=== PATIENT | male | born 1950 | race Caucasian/White ===

== ENCOUNTER 2018-10-25 07:41 | Emergency (ER) | payer MEDICARE, MEDICAID, SELFPAY ==
[2018-10-25 07:45] VITALS: PULSE 87; RESP 18; O2SAT 99
[2018-10-25] MEDS: ALBUTEROL/IPRATROPIUM 3 ML AMPUL INH (07:45)
--- NOTE | 2018-10-25 07:47 | DI.RAD.S_ITS ---
PROCEDURE: XR CHEST 2V INDICATIONS: cough, fever, aches TECHNIQUE: 2 views of the chest were acquired. COMPARISON: [facility], , CHEST 2 VIEW, 11/09/2016, 12:45. FINDINGS: Surgical changes and devices: None. Lungs and pleura: Left apical scarring is present, as before. Lungs are otherwise clear. No pleural effusions or pneumothorax. Mediastinum: Mediastinal contours are normal. Heart size is normal. Bones and chest wall: No suspicious bony abnormalities. Soft tissues appear unremarkable. IMPRESSION: No acute process. Dictated by: Sushil Martinez M.D. on 10/25/2018 at 8:18 Approved by: Sushil Martinez M.D. on 10/25/2018 at 8:18
[2018-10-25 07:49] VITALS: BP 181/89; PULSE 95; RESP 18; TEMP 36.6; O2SAT 100; BMI 21.1
--- NOTE | 2018-10-25 07:50 | ED.URI ---
HPI - URI/Sore Throat General Chief Complaint: Upper Respiratory Symptoms Stated Complaint: difficulty breathing,sick for few days Time Seen by Provider: 10/25/18 07:43 Source: patient Mode of arrival: ambulatory Limitations: no limitations History of Present Illness HPI Narrative: 67-year-old male smoker with history of COPD and lung cancer presents with about 1 week of increased cough, shortness of breath subjective fever and body aches. He did not get a flu shot this year. He is not dizzy nor weak or lightheaded. He denies nausea, vomiting or diarrhea. He was last treated for lung cancer in 2017. He has not been hospitalized any time recently. He denies any recent travel or history of blood clot MD Complaint: fever and cough Onset (ago): day(s) Duration: constant Severity: moderate Relieving factors: nothing Exacerbating factors: exertion Description of mucous: clear Able to tolerate fluids by mouth: Yes Associated symptoms: fever, chills and myalgias Treatments prior to arrival: none Related Data Previous Rx's Medication Instructions Recorded vzdhmruphv-tuotrdtlbocal-ecly 0 tab PO Q4HP PRN #10 tab 01/25/16 amoxicillin 500 mg PO Q8H #26 cap 11/02/16 dextromethorphan-guaifenesin 1 tab PO Q12HP PRN #20 tab 11/09/16 [Mucinex DM] albuterol sulfate 1 puff INHALATION Q4-6H PRN #8.5 10/25/18 gram Allergies Allergy/AdvReac Type Severity Reaction Status Date / Time No Known Drug Allergies Allergy Verified 10/25/18 07:49 Review of Systems Constitutional Reports chills, Reports fever(s), Denies lethargy and Denies weakness Eyes Denies change in vision, Denies eye discharge, Denies irritation and Denies loss of vision ENT Ears, Nose, Mouth, and Throat: Denies change in voice, Denies neck pain and Denies sore throat Cardiovascular Denies chest pain, Denies irregular heart rhythm, Denies lightheadedness, Denies palpitations, Reports dyspnea, Denies dyspnea on exertion and Denies orthopnea Respiratory Reports cough, Reports dyspnea, Denies dyspnea on exertion and Reports wheezing Gastrointestinal Gastrointestinal: Denies abdominal pain, Denies change in bowel habits, Denies diarrhea, Denies nausea and Denies vomiting Genitourinary Denies hematuria, Denies flank pain, Denies urinary incontinence and Denies urinary urgency Musculoskeletal Denies neck pain Integumentary/Breasts Denies pruritus, Denies erythema, Denies rash and Denies wounds Neurologic Denies confusion, Denies loss of vision and Denies weakness Psychiatric Denies anxiety, Denies confusion, Denies depression, Denies homicidal ideation and Denies suicidal ideation Endocrine Denies palpitations Hematologic/Lymphatic Denies easy bruising Allergic/Immunologic Reports wheezing Exam Narrative Exam Narrative: GENERAL: 67-year-old male appears younger than stated age, no obvious or significant current distress HEAD: Atraumatic. Normocephalic. No temporal or scalp tenderness. EYES: Pupils equal round and reactive. Extraocular motions intact. No scleral icterus. No injection or drainage. ENT: Nose without bleeding, purulent drainage or septal hematoma. Throat without erythema, tonsillar hypertrophy or exudate. Uvula midline. Airway patent. NECK: Trachea midline. No JVD or lymphadenopathy. Supple, nontender, no meningeal signs. CARDIOVASCULAR: Regular rate and rhythm without murmurs, gallops, or rubs. RESPIRATORY: Prolonged expiratory phase with decreased sounds bilaterally GASTROINTESTINAL: Abdomen soft, non-tender, nondistended. No hepato-splenomegaly, or palpable masses. No guarding. EXTREMITIES: No clubbing, cyanosis, or edema. No joint tenderness, effusion, or edema noted. BACK: Nontender without deformity or crepitance. No flank tenderness. NEURO: AOx3. SKIN: No rash or erythema. Initial Vital Signs Initial Vital Signs: Vital Signs Pulse Rate 87 10/25/18 07:45 Respiratory Rate 18 10/25/18 07:45 Pulse Oximetry 99 10/25/18 07:45 Course Orders Ordered: ED Orders 10/25/18 07:47 XR chest 2V Stat 10/25/18 07:48 Influenza A and B by PCR Rapid Stat Discontinued Medications Albuterol (Ventolin Hfa Prepack) 1 box MISC SEEINSTR ONE Stop: 10/25/18 07:58 Last Admin: 10/25/18 08:29 Dose: Not Given Albuterol/Ipratropium (Duoneb) 3 ml INH NOW ONE Stop: 10/25/18 07:48 Last Admin: 10/25/18 07:45 Dose: 3 ml Reevaluation(s) Reevaluation #1: Patient reports tremendous improvement after albuterol inhaler Time: 08:02 Vital Signs - 8 hr 10/25/18 07:45 10/25/18 07:49 10/25/18 08:43 Temperature 98 F Pulse Rate 87 95 H 88 Respiratory Rate 18 18 17 Blood Pressure 181/89 H 148/88 H Pulse Oximetry 99 100 97 MDM - URI/Sore Throat Lab Data Lab Results 10/25/18 Range/Units 07:48 Influenza A & B (PCR) Positive, type a H (Negative) Imaging Data Chest x-ray: Radiologist's impression: Kike Rebolledo 67 M [address] [address] XRay Report Signed Patient: Kike Rebolledo WMR#: [id number] : [id number]:[id number] Age/Sex: 67 / MDate of Service: 10/25/18 Loc: ED Accession Number: [id number] Procedure: XR chest 2V Ordering Provider: Benja Cruz D.O. PROCEDURE: XR CHEST 2V INDICATIONS: cough, fever, aches TECHNIQUE: 2 views of the chest were acquired. COMPARISON: [facility], , CHEST 2 VIEW, 11/09/2016, 12:45. FINDINGS: Surgical changes and devices: None. Lungs and pleura: Left apical scarring is present, as before. Lungs are otherwise clear. No pleural effusions or pneumothorax. Mediastinum: Mediastinal contours are normal. Heart size is normal. Bones and chest wall: No suspicious bony abnormalities. Soft tissues appear unremarkable. IMPRESSION: No acute process. Dictated by: Sushil Martinez M.D. on 10/25/2018 at 8:18 Approved by: Sushil Martinez M.D. on 10/25/2018 at 8:18 [facility] Narrative Medical decision making narrative: Multiple etiologies for patient's symptoms considered including: [flu vs. COPD vs. pneumonia vs. PE vs other] Patient's symptoms improved or duration of stay with above-stated therapies. Findings and discharge diagnosis discussed with patient/family followed by verbalization of understanding Return precautions discussed with patient/family whom verbalize understanding. Discharge Plan Departure Patient Disposition: Home Clinical Impression: Influenza A Interventions: ED Discharge Assessment Last Done: 10/25/18 08:43 Instructions: DI for Atypical Pneumonia Activity Restrictions/Additional Instructions: *You have been diagnosed with [influenza] *What to do: *Take medications as directed, which include an inhaler like we used in the Emergency Department *Follow up with your primary care provider in 2-3 days, call for an appointment. Let them know you were seen in the Emergency Department and that we ask that you be seen in follow up *Return to ER if you should have any new, worsening or concerning symptoms Prescriptions: New albuterol sulfate 90 mcg/actuation HFA aerosol inhaler 1 puff INHALATION Q4-6H PRN (Reason: bronchospasm) Qty: 8.5 RF: 0 No Action yddnulqulp-gsbjjfmfjryna-cqst 1 EACH tablet PO Q4HP PRNQty: 10 RF: 0 amoxicillin 500 MG capsule 500 mg PO Q8H Qty: 26 RF: 0 dextromethorphan-guaifenesin [Mucinex DM] 1,200 MG/60 MG tablet extended release 12 hr 1 tab PO Q12HP PRNQty: 20 RF: 0 Referrals: [facility] [Outside]
--- NOTE | 2018-10-25 07:55 | ED_ITS ---
HPI - URI/Sore Throat General Chief Complaint: Upper Respiratory Symptoms Stated Complaint: difficulty breathing,sick for few days Time Seen by Provider: 10/25/18 07:43 Source: patient Mode of arrival: ambulatory Limitations: no limitations History of Present Illness HPI Narrative: 67-year-old male smoker with history of COPD and lung cancer presents with about 1 week of increased cough, shortness of breath subjective fever and body aches. He did not get a flu shot this year. He is not dizzy nor weak or lightheaded. He denies nausea, vomiting or diarrhea. He was last treated for lung cancer in 2017. He has not been hospitalized any time recently. He denies any recent travel or history of blood clot MD Complaint: fever and cough Onset (ago): day(s) Duration: constant Severity: moderate Relieving factors: nothing Exacerbating factors: exertion Description of mucous: clear Able to tolerate fluids by mouth: Yes Associated symptoms: fever, chills and myalgias Treatments prior to arrival: none Related Data Previous Rx's Medication Instructions Recorded kahettbnsg-vsvjbmunsppeh-wviz 0 tab PO Q4HP PRN #10 tab 01/25/16 amoxicillin 500 mg PO Q8H #26 cap 11/02/16 dextromethorphan-guaifenesin 1 tab PO Q12HP PRN #20 tab 11/09/16 [Mucinex DM] albuterol sulfate 1 puff INHALATION Q4-6H PRN #8.5 10/25/18 gram Allergies Allergy/AdvReac Type Severity Reaction Status Date / Time No Known Drug Allergies Allergy Verified 10/25/18 07:49 Review of Systems Constitutional Reports chills, Reports fever(s), Denies lethargy and Denies weakness Eyes Denies change in vision, Denies eye discharge, Denies irritation and Denies loss of vision ENT Ears, Nose, Mouth, and Throat: Denies change in voice, Denies neck pain and Denies sore throat Cardiovascular Denies chest pain, Denies irregular heart rhythm, Denies lightheadedness, Denies palpitations, Reports dyspnea, Denies dyspnea on exertion and Denies orthopnea Respiratory Reports cough, Reports dyspnea, Denies dyspnea on exertion and Reports wheezing Gastrointestinal Gastrointestinal: Denies abdominal pain, Denies change in bowel habits, Denies diarrhea, Denies nausea and Denies vomiting Genitourinary Denies hematuria, Denies flank pain, Denies urinary incontinence and Denies urinary urgency Musculoskeletal Denies neck pain Integumentary/Breasts Denies pruritus, Denies erythema, Denies rash and Denies wounds Neurologic Denies confusion, Denies loss of vision and Denies weakness Psychiatric Denies anxiety, Denies confusion, Denies depression, Denies homicidal ideation and Denies suicidal ideation Endocrine Denies palpitations Hematologic/Lymphatic Denies easy bruising Allergic/Immunologic Reports wheezing Exam Narrative Exam Narrative: GENERAL: 67-year-old male appears younger than stated age, no obvious or significant current distress HEAD: Atraumatic. Normocephalic. No temporal or scalp tenderness. EYES: Pupils equal round and reactive. Extraocular motions intact. No scleral icterus. No injection or drainage. ENT: Nose without bleeding, purulent drainage or septal hematoma. Throat without erythema, tonsillar hypertrophy or exudate. Uvula midline. Airway patent. NECK: Trachea midline. No JVD or lymphadenopathy. Supple, nontender, no meningeal signs. CARDIOVASCULAR: Regular rate and rhythm without murmurs, gallops, or rubs. RESPIRATORY: Prolonged expiratory phase with decreased sounds bilaterally GASTROINTESTINAL: Abdomen soft, non-tender, nondistended. No hepato- splenomegaly, or palpable masses. No guarding. EXTREMITIES: No clubbing, cyanosis, or edema. No joint tenderness, effusion, or edema noted. BACK: Nontender without deformity or crepitance. No flank tenderness. NEURO: AOx3. SKIN: No rash or erythema. Initial Vital Signs Initial Vital Signs: Vital Signs Pulse Rate 87 10/25/18 07:45 Respiratory Rate 18 10/25/18 07:45 Pulse Oximetry 99 10/25/18 07:45 Course Orders Ordered: ED Orders 10/25/18 07:47 XR chest 2V Stat 10/25/18 07:48 Influenza A and B by PCR Rapid Stat Discontinued Medications Albuterol (Ventolin Hfa Prepack) 1 box MISC SEEINSTR ONE Stop: 10/25/18 07:58 Last Admin: 10/25/18 08:29 Dose: Not Given Albuterol/Ipratropium (Duoneb) 3 ml INH NOW ONE Stop: 10/25/18 07:48 Last Admin: 10/25/18 07:45 Dose: 3 ml Reevaluation(s) Reevaluation #1: Patient reports tremendous improvement after albuterol inhaler Time: 08:02 Vital Signs - 8 hr 10/25/18 07:45 10/25/18 07:49 10/25/18 08:43 Temperature 98 F Pulse Rate 87 95 H 88 Respiratory Rate 18 18 17 Blood Pressure 181/89 H 148/88 H Pulse Oximetry 99 100 97 MDM - URI/Sore Throat Lab Data Lab Results 10/25/18 Range/Units 07:48 Influenza A & B (PCR) Positive, type a H (Negative) Imaging Data Chest x-ray: Radiologist's impression: Kike Rebolledo 67 M [address] [address] XRay Report Signed Patient: Kike Rebolledo WMR#: [id number] : [id number]:[id number] Age/Sex: 67 / MDate of Service: 10/25/18 Loc: ED Accession Number: [id number] Procedure: XR chest 2V Ordering Provider: Benja Cruz D.O. PROCEDURE: XR CHEST 2V INDICATIONS: cough, fever, aches TECHNIQUE: 2 views of the chest were acquired. COMPARISON: [facility], , CHEST 2 VIEW, 11/09/2016, 12:45. FINDINGS: Surgical changes and devices: None. Lungs and pleura: Left apical scarring is present, as before. Lungs are otherwise clear. No pleural effusions or pneumothorax. Mediastinum: Mediastinal contours are normal. Heart size is normal. Bones and chest wall: No suspicious bony abnormalities. Soft tissues appear unremarkable. IMPRESSION: No acute process. Dictated by: Sushil Martinez M.D. on 10/25/2018 at 8:18 Approved by: Sushil Martinez M.D. on 10/25/2018 at 8:18 [facility] Narrative Medical decision making narrative: Multiple etiologies for patient's symptoms considered including: [flu vs. COPD vs. pneumonia vs. PE vs other] Patient's symptoms improved or duration of stay with above-stated therapies. Findings and discharge diagnosis discussed with patient/family followed by verbalization of understanding Return precautions discussed with patient/family whom verbalize understanding. Discharge Plan Departure Patient Disposition: Home Clinical Impression: Influenza A Interventions: ED Discharge Assessment Last Done: 10/25/18 08:43 Instructions: DI for Atypical Pneumonia Activity Restrictions/Additional Instructions: *You have been diagnosed with [influenza] *What to do: *Take medications as directed, which include an inhaler like we used in the Emergency Department *Follow up with your primary care provider in 2-3 days, call for an appointment. Let them know you were seen in the Emergency Department and that we ask that you be seen in follow up *Return to ER if you should have any new, worsening or concerning symptoms Prescriptions: New albuterol sulfate 90 mcg/actuation HFA aerosol inhaler 1 puff INHALATION Q4-6H PRN (Reason: bronchospasm) Qty: 8.5 RF: 0 No Action ofzxgcdxcd-ykqpoxbblhsrq-msry 1 EACH tablet PO Q4HP PRNQty: 10 RF: 0 amoxicillin 500 MG capsule 500 mg PO Q8H Qty: 26 RF: 0 dextromethorphan-guaifenesin [Mucinex DM] 1,200 MG/60 MG tablet extended release 12 hr 1 tab PO Q12HP PRNQty: 20 RF: 0 Referrals: [facility] [Outside]
[2018-10-25 08:43] VITALS: BP 148/88; PULSE 88; RESP 17; O2SAT 97
== END 2018-10-25 08:46 | disposition home or self-care (01) ==
LOC: ED 08:44
PROVIDERS: Emergency Provider Emergency Medicine
DX: J10.1 Influenza due to other identified influenza virus with other respiratory manifestations (principal)
CPT/HCPCS: 71046; 87400; 94640; 99282; 99283

== ENCOUNTER 2018-10-27 22:53 | Emergency (ER) | payer MEDICARE, MEDICAID, SELFPAY ==
[2018-10-27 23:00] VITALS: BP 153/93; PULSE 126; RESP 16; TEMP 38.6; O2SAT 95; BMI 21.7
--- NOTE | 2018-10-28 00:38 | ED.SOB ---
HPI - SOB/Dyspnea General Chief Complaint: Shortness of Breath/Dyspnea Stated Complaint: States has influenza A, told to return after 3 day Time Seen by Provider: 10/28/18 00:31 Source: patient Mode of arrival: ambulatory Limitations: no limitations History of Present Illness Patient is a 67-year-old male. History of COPD and lung cancer. Last lung cancer treatment was in 2017. Is not on oxygen at home for his COPD. Was seen here in the emergency department a couple days ago. Was diagnosed with the flu. Was not started on Tamiflu. Since then has had a cough, headache, body aches, shortness of breath. He was given a prescription for albuterol however was unable to fill it because the pharmacy would not fill this medicine secondary to the 8.5 g that were ordered. This apparently was not carried by the pharmacy. Related Data Previous Rx's Medication Instructions Recorded nmcxxzqeyy-rizxajevvuaks-jqkt 0 tab PO Q4HP PRN #10 tab 01/25/16 amoxicillin 500 mg PO Q8H #26 cap 11/02/16 dextromethorphan-guaifenesin 1 tab PO Q12HP PRN #20 tab 11/09/16 [Mucinex DM] albuterol sulfate 1 puff INHALATION Q4-6H PRN #8.5 10/25/18 gram albuterol sulfate 2 puff INHALATION Q4-6H PRN #18 10/28/18 gram Allergies Allergy/AdvReac Type Severity Reaction Status Date / Time No Known Drug Allergies Allergy Verified 10/25/18 07:49 Review of Systems Constitutional Reports body ache(s), Reports chills, Reports fatigue and Reports fever(s) Cardiovascular Denies chest pain and Denies dyspnea Respiratory Denies dyspnea Gastrointestinal Gastrointestinal: Denies abdominal pain, Denies diarrhea, Denies nausea and Denies vomiting Musculoskeletal Reports myalgias and Denies arthralgias Integumentary/Breasts Denies rash Neurologic Denies behavioral changes Psychiatric Denies behavioral changes Endocrine Reports fatigue Hematologic/Lymphatic Denies easy bleeding and Denies easy bruising [facility] Medical History COPD (chronic obstructive pulmonary disease) (Acute) Lung cancer (Acute) Social History Smoking Status: Former smoker Social History Smoking Status: Former smoker Exam Initial Vital Signs Initial Vital Signs: Vital Signs Temperature 101.4 F H 10/27/18 23:00 Pulse Rate 126 H 10/27/18 23:00 Respiratory Rate 16 10/27/18 23:00 Blood Pressure 153/93 H 10/27/18 23:00 Pulse Oximetry 95 10/27/18 23:00 Const General: well groomed and No acute distress Orientation: alert, awake and oriented x3 HENMT Head: normal to inspection and normocephalic Resp Effort & Inspection: normal respiratory effort, no audible wheezes, no cough, no grunting, not labored and not tachypneic Auscultation: rhonchi Cardio Rate: tachycardic Rhythm: regular rhythm Skin Lesions: no lesions Rashes: no rashes Neuro General: alert, awake and oriented x3 Cognition: normal cognition Speech: speech normal Gait: normal gait Motor: muscle tone normal throughout Extrem General: normal to inspection and capillary refill normal Psych Appearance: grossly normal and well kempt Course Orders Ordered: ED Orders 10/28/18 00:38 RT Consult Eval and Treat Now 10/28/18 02:21 XR chest 1V Stat Discontinued Medications Albuterol (Ventolin) 2.5 mg INH NOW ONE Stop: 10/28/18 00:39 Last Admin: 10/28/18 01:00 Dose: 2.5 mg Sodium Chloride (Normal Saline 0.9%) 1,000 mls @ 1,000 mls/hr IV BOLUS ONE Stop: 10/28/18 01:37 Last Infusion: 10/28/18 02:15 Dose: 0 mls/hr Admin: 10/28/18 01:00 Dose: 1,000 mls/hr Vital Signs - 8 hr 10/27/18 23:00 10/28/18 01:07 10/28/18 02:16 Temperature 101.4 F H 99.0 F Pulse Rate 126 H 77 114 H Respiratory Rate 16 18 18 Blood Pressure 153/93 H Blood Pressure [Left Arm] 148/84 H Pulse Oximetry 95 96 90 L MDM - SOB/Dyspnea Imaging Data Chest x-ray: Attestation: I personally reviewed and interpreted this imaging study as follows: My impression: No pneumonia, no pneumothorax, no acute abnormalities MDM Narrative Medical decision making narrative: Patient arrived was febrile and tachycardic. Patient hypoxic to the low 90s. He was given a nebulizer here in the emergency department and is medications for his fever and also fluids. Afterwards patient states that he felt much better. He ambulated to the bathroom. His heart rate did not improve that much with reduction of his fever and his oxygen saturations were also in the low 90s however there is no signs of pneumonia. He is out of the window for treatment with Tamiflu. Does have a history of COPD which would explain his low oxygen saturations. He was not short of breath with walking around the emergency department. Patient has a phone number to call to establish primary care provider here in the area. Will hold on further workup for now. Patient was given return precautions. He expressed understanding and agreement with plan. Discharge Plan Departure Patient Disposition: Home Clinical Impression: Influenza A Instructions: Chronic Obstructive Pulmonary Disease Activity Restrictions/Additional Instructions: I do recommend that you contact [phone] to establish a primary care provider in the area. Fill the albuterol. I also recommend that you start taking Tums and or a Zantac like we discussed. Return to the emergency department for any new or worsening symptoms Prescriptions: New albuterol sulfate 90 mcg/actuation HFA aerosol inhaler 2 puff INHALATION Q4-6H PRN (Reason: shortness of breath) Qty: 18 RF: 0 No Action dhewzbqsse-yeygzpvrfrmgf-osli 1 EACH tablet PO Q4HP PRNQty: 10 RF: 0 amoxicillin 500 MG capsule 500 mg PO Q8H Qty: 26 RF: 0 dextromethorphan-guaifenesin [Mucinex DM] 1,200 MG/60 MG tablet extended release 12 hr 1 tab PO Q12HP PRNQty: 20 RF: 0 albuterol sulfate 90 mcg/actuation HFA aerosol inhaler 1 puff INHALATION Q4-6H PRN (Reason: bronchospasm) Qty: 8.5 RF: 0
[2018-10-28] MEDS: ALBUTEROL 2.5 MG/3 ML NEB (ADULT) INH (01:00)
[2018-10-28] MEDS: SODIUM CHLORIDE 0.9% 1,000 ML 1000 ML IV (01:00)
[2018-10-28 01:07] VITALS: PULSE 77; RESP 18; O2SAT 96
[2018-10-28 02:16] VITALS: BP 148/84; PULSE 114; RESP 18; TEMP 37.2; O2SAT 90
--- NOTE | 2018-10-28 02:21 | DI.RAD.S_ITS ---
PROCEDURE: XR CHEST 1V INDICATIONS: Shortness of breath, flu, hypoxia TECHNIQUE: One view of the chest was acquired. COMPARISON: [facility], CT, PE STUDY (CTA CHEST), 04/21/2009, 13:13. [facility], CR, CHEST 2 VIEW, 09/18/2014, 17:12. [facility], CR, CHEST 2 VIEW, 11/09/2016, 12:45. [facility], , CHEST 2 VIEW, 11/02/2016, 20:41. [facility], , XR CHEST 2V, 10/25/2018, 7:58. FINDINGS: Surgical changes and devices: None. Lungs and pleura: Lungs are clear. No pleural effusions or pneumothorax. Mediastinum: The cardiac contours are within normal limits. The aorta demonstrates calcification and tortuosity. Bones and chest wall: Age-appropriate bony degenerative changes are seen. No suspicious bony lesions. A nipple shadow can be seen involving the right lower lung, which can be seen on several prior examinations. IMPRESSION: Portable chest within normal limits. Note: No significant discrepancy from the preliminary report. Dictated by: Kashmir Bowen M.D. on 10/28/2018 at 7:28 Approved by: Kashmir Bowen M.D. on 10/28/2018 at 7:31
[2018-10-28 03:16] VITALS: BP 156/90; PULSE 110; RESP 16; O2SAT 92
== END 2018-10-28 03:18 | disposition home or self-care (01) ==
PROVIDERS: Emergency Provider Emergency Medicine
DX: J10.1 Influenza due to other identified influenza virus with other respiratory manifestations (principal); R00.0 Tachycardia, unspecified; R53.83 Other fatigue
CPT/HCPCS: 71045; 94640; 96360; 99283; J7613

== ENCOUNTER 2022-01-04 15:34 | Emergency (ER) | payer MEDICARE, MEDICAID, SELFPAY ==
[2022-01-04] VITALS (30 sets, daily range): BP systolic 121–172; BP diastolic 69–106; PULSE 59–89; RESP 15–26; TEMP 37.1; O2SAT 95–99
--- NOTE | 2022-01-04 15:44 | DI.RAD.S_ITS ---
PROCEDURE: XR CHEST 1V INDICATIONS: chest pain TECHNIQUE: One view of the chest was acquired. COMPARISON: [facility], CR, XR CHEST 1V, 10/28/2018, 2:30. [facility], CR, XR CHEST 2V, 10/25/2018, 7:58. FINDINGS: Surgical changes and devices: None. Lungs and pleura: No consolidation. Calcification in the right lung which likely corresponds to the calcified pleural plaques seen on remote CT. No pleural effusions or pneumothorax. Mediastinum: Mediastinal contours appear normal. Heart size is normal. Bones and chest wall: No suspicious bony lesions. Overlying soft tissues appear unremarkable. IMPRESSION: No acute cardiopulmonary abnormality. Calcified pleural plaques. Dictated by: Nicholas Silva M.D. on 01/04/2022 at 16:44 Approved by: Nicholas Silva M.D. on 01/04/2022 at 16:45
[2022-01-04 16:10] LABS: Add Manual Diff / Slide Review NO; Basophils Absolute Auto 100 /uL (0-100); Basophils Percent Auto 0.5 % (0-2); Eosinophils Absolute Auto 500 /uL (0-450); Eosinophils Percent Auto 4.4 % (2-4); Hematocrit 50.7 % (41-53); Hemoglobin 17.3 g/dL (13.5-17.5); Lymphocytes Absolute Auto 1200 /uL (1100-4500); Mean Corpuscular HGB Conc 34.1 % (30-36); Mean Corpuscular Hemoglobin 30.5 PG (26-34); Mean Corpuscular Volume 89.4 fL (80-100); Monocytes Absolute Auto 700 /uL (0-900); Monocytes Percent Auto 6.8 % (3-14); Neutrophils Absolute Auto 8100 /uL (1500-7000); Neutrophils Percent Auto 77.3 % (50-75); Platelet Count 165 X10^3/uL (150-400); Red Blood Cell Count 5.66 X10^6/uL (4.5-5.9); Red Cell Distribution Width 14.7 % (11.6-14.8); White Blood Cell Count 10.5 X10^3/uL (4.5-11.0)
[2022-01-04 16:21] LABS: Alanine Aminotransferase 18 IU/L (<50); Albumin 4.6 g/dL (3.5-5.0); Albumin Globulin Ratio 1.4 (1.0-2.8); Alkaline Phosphatase 123 U/L (38-126); Aspartate Aminotransferase 54 IU/L (17-59); BUN Creatinine Ratio 12.3 (6-22); Bilirubin Total 0.6 mg/dL (0.2-1.3); Blood Urea Nitrogen 17 mg/dL (9-20); Calcium 9.3 mg/dL (8.4-10.2); Carbon Dioxide 33 mmol/L (22-32); Chloride 101 mmol/L (98-107); Creatine Kinase 189 U/L (55-170); Estimated Glomerular Filt Rate 54 mL/min (>60); Globulin 3.3 g/dL (1.7-4.1); Glucose 114 mg/dL (80-110); Lipase 46 U/L (23-300); Magnesium 2.3 mg/dL (1.6-2.3); Potassium 3.9 mmol/L (3.4-5.1); Sodium 143 mmol/L (137-145); Total Protein 7.9 g/dL (6.3-8.2)
--- NOTE | 2022-01-04 16:24 | PC.NURSE ---
Addendum entered by Yoana Kenny R.N. 01/04/22 18:33: 1830: Pt reports no chest pain. Original Note: Pt reports intermittent, substernal, chest heaviness that radiates up to both sides of jaw, nausea and headache for the past 2 days that began while chopping wood. Pt reports 3/10 chest pain currently. Denies SOB. Reports no recent illness. Reports taking 3 larger doses of aspirin at noon and earlier this morning. Call light within reach. Encouraged to call if any new or worsening symptoms.
[2022-01-04 16:37] LABS: HEMOLYSIS < 15 (0-50)
[2022-01-04 16:43] LABS: CKMB % Relative Index 7.1 % (1.5-5.0)
--- NOTE | 2022-01-04 16:52 | ED.CHESTPAIN ---
HPI - Chest Pain <Paul Metzger MD - Last Filed: 01/07/22 12:26> General Chief Complaint: Chest Pain Stated Complaint: chest pain x 2 days Time Seen by Provider: 01/04/22 16:52 Source: patient Mode of arrival: Ambulatory History of Present Illness HPI narrative: This 71-year-old man with a remote history of lung cancer x2 comes to the ED today with 2 days history of chest pain. He said that he 1st noticed it in his jaw and neck while cutting wood. He said the pain was pretty severe and caused a pretty bad headache as well. He said it made him feel nauseated, short of breath and diaphoretic. He notes that the pain is quite a bit better when he would rest and not work so hard. The pain is persisted intermittently since then. Currently the pain is in the left and right precordium not radiating anywhere. He thought he better come to have this evaluated. To his knowledge he has never had cardiac disease. He has never been treated for hypertension or diabetes. He is a long-term smoker. No injury cough or fever. Related Data Allergies Allergy/AdvReac Type Severity Reaction Status Date / Time No Known Drug Allergies Allergy Verified 10/25/18 07:49 Review of Systems <Paul Metzger MD - Last Filed: 01/07/22 12:26> Review of Systems Narrative: Complete review of systems is negative other than as noted above. Patient History <Paul Metzger MD - Last Filed: 01/07/22 12:26> Medical History (Updated 01/04/22 @ 17:02 by Paul Metzger MD) COPD (chronic obstructive pulmonary disease) Lung cancer Social History Smoking Status: Former smoker Smoking Status: Former smoker alcohol intake frequency: 0-2 drinks per day Substance Use Type: does not use Exam <Paul Metzger MD - Last Filed: 01/07/22 12:26> Narrative Exam Narrative: GENERAL: Alert, cooperative and in no distress. HEAD: Atraumatic. Normocephalic. EYES: Sclera are clear without icterus. Extraocular movements are full. ENT: No rhinorrhea. Oropharynx is moist. Mouth exam is benign. NECK: Supple. Full range of motion. CARDIOVASCULAR: Normal rate and rhythm without murmur gallop or rub. RESPIRATORY: Clear to auscultation. Breath sounds equal bilaterally. No wheezes, rales, or rhonchi. GASTROINTESTINAL: Abdomen soft, non-tender, nondistended. EXTREMITIES: No edema, full range of motion. No obvious trauma. BACK: Normal inspection, no CVA tenderness. NEURO: Nonfocal examination, normal speech, normal gait. SKIN: No rash or erythema of visible areas PSYCH: Normally oriented. Normal range of affect. Appropriate behavior Initial Vital Signs Initial Vital Signs: Vital Signs Temperature 98.7 F 01/04/22 15:37 Pulse Rate 89 01/04/22 15:37 Respiratory Rate 20 01/04/22 15:37 Blood Pressure 171/96 H 01/04/22 15:37 Pulse Oximetry 98 01/04/22 15:37 Oxygen Delivery Method 01/04/22 15:37 <Benja Cruz DO - Last Filed: 01/04/22 19:49> Initial Vital Signs Initial Vital Signs: Vital Signs Temperature 98.7 F 01/04/22 15:37 Pulse Rate 89 01/04/22 15:37 Respiratory Rate 20 01/04/22 15:37 Blood Pressure 171/96 H 01/04/22 15:37 Pulse Oximetry 98 01/04/22 15:37 Oxygen Delivery Method 01/04/22 15:37 Course <Paul Metzger MD - Last Filed: 01/07/22 12:26> Orders Ordered: Discontinued Medications Aspirin (Aspirin 81 Mg Chew Tab) 324 mg PO NOW ONE Stop: 01/04/22 16:59 Last Admin: 01/04/22 17:18 Dose: 324 mg Documented By: SB Atorvastatin Calcium (Atorvastatin 20 Mg Tablet) 40 mg PO NOW ONE Stop: 01/04/22 18:19 Last Admin: 01/04/22 18:26 Dose: 40 mg Documented By: BS Heparin Sodium (Porcine) (Heparin 5,000 Unit/Ml Vial) 4,000 unit IV NOW ONE Stop: 01/04/22 17:17 Last Admin: 01/04/22 17:21 Dose: 4,000 unit Documented By: SB Heparin Sodium/Dextrose (Heparin Drip) 25,000 unit in 500 mls @ 17.418 mls/hr IV CONT FELECIA; Protocol Last Admin: 01/04/22 17:26 Dose: 12 units/kg/hr, 17.418 mls/hr Documented By: PEDRO LUIS Metoprolol Tartrate (Metoprolol Tartrate 5 Mg/5 Ml Inj) 5 mg IV NOW ONE Stop: 01/04/22 16:59 Last Admin: 01/04/22 17:45 Dose: Not Given Documented By: PEDRO LUIS Metoprolol Tartrate (Metoprolol Ir 25 Mg Tablet) 25 mg PO NOW ONE Stop: 01/04/22 17:44 Last Admin: 01/04/22 17:49 Dose: 25 mg Documented By: PEDRO LUIS Morphine Sulfate (Morphine 2 Mg/Ml Inj) 2 mg IV NOW ONE Stop: 01/04/22 16:59 Last Admin: 01/04/22 17:41 Dose: 2 mg Documented By: PEDRO LUIS Nitroglycerin (Nitroglycerin 0.4 Mg Sl Tab) 0.4 mg SL [id number] PRN PRN Reason: Chest Pain Last Admin: 01/04/22 18:04 Dose: 0.4 mg Documented By: PEDRO LUIS Admin: 01/04/22 17:37 Dose: 0.4 mg Documented By: PEDRO LUIS Admin: 01/04/22 17:14 Dose: 0.4 mg Documented By: PEDRO LUIS Vital Signs Vital signs: Vital Signs - 8 hr 01/04/22 15:37 01/04/22 15:47 01/04/22 17:14 Temperature 98.7 F Pulse Rate 89 79 78 Respiratory Rate 20 21 Blood Pressure 171/96 H 170/106 H Pulse Oximetry 98 98 Oxygen Delivery Method Room Air 01/04/22 16:00 01/04/22 16:30 01/04/22 17:00 Temperature Pulse Rate 70 79 73 Respiratory Rate 17 15 21 Blood Pressure Pulse Oximetry 98 98 99 Oxygen Delivery Method 01/04/22 17:15 01/04/22 17:15 01/04/22 17:37 Temperature Pulse Rate 75 80 Respiratory Rate 26 H Blood Pressure 164/90 H 147/90 H Pulse Oximetry 99 Oxygen Delivery Method 01/04/22 17:20 01/04/22 17:20 01/04/22 17:25 Temperature Pulse Rate 76 87 Respiratory Rate 18 Blood Pressure 172/99 H Pulse Oximetry 97 96 Oxygen Delivery Method 01/04/22 17:25 01/04/22 17:30 01/04/22 17:30 Temperature Pulse Rate 79 Respiratory Rate 20 Blood Pressure 134/78 151/86 H Pulse Oximetry 96 Oxygen Delivery Method 01/04/22 17:36 01/04/22 17:36 01/04/22 17:37 Temperature Pulse Rate 77 83 Respiratory Rate 21 22 Blood Pressure 143/88 H Pulse Oximetry 96 96 Oxygen Delivery Method 01/04/22 17:37 01/04/22 17:40 01/04/22 17:40 Temperature Pulse Rate 74 Respiratory Rate 18 Blood Pressure 147/90 H 123/77 Pulse Oximetry 96 Oxygen Delivery Method 01/04/22 17:45 01/04/22 17:45 01/04/22 17:51 Temperature Pulse Rate 88 Respiratory Rate 19 Blood Pressure 122/69 136/77 Pulse Oximetry 95 Oxygen Delivery Method 01/04/22 17:51 01/04/22 17:52 01/04/22 17:52 Temperature Pulse Rate 84 76 Respiratory Rate 17 17 Blood Pressure 137/85 Pulse Oximetry 96 96 Oxygen Delivery Method 01/04/22 17:53 01/04/22 17:53 01/04/22 18:04 Temperature Pulse Rate 77 72 Respiratory Rate 22 Blood Pressure 135/84 133/88 Pulse Oximetry 95 Oxygen Delivery Method 01/04/22 17:55 01/04/22 17:55 01/04/22 18:00 Temperature Pulse Rate 73 Respiratory Rate 17 Blood Pressure 131/83 133/88 Pulse Oximetry 95 Oxygen Delivery Method 01/04/22 18:00 01/04/22 18:05 01/04/22 18:05 Temperature Pulse Rate 67 67 Respiratory Rate 15 17 Blood Pressure 133/84 Pulse Oximetry 96 96 Oxygen Delivery Method 01/04/22 18:10 01/04/22 18:10 01/04/22 18:12 Temperature Pulse Rate 71 76 Respiratory Rate 15 15 Blood Pressure 133/85 Pulse Oximetry 96 96 Oxygen Delivery Method 01/04/22 18:12 01/04/22 18:15 01/04/22 18:15 Temperature Pulse Rate 73 Respiratory Rate 18 Blood Pressure 131/86 136/86 Pulse Oximetry 95 Oxygen Delivery Method 01/04/22 18:25 01/04/22 18:25 01/04/22 18:30 Temperature Pulse Rate 84 Respiratory Rate 19 Blood Pressure 132/75 124/82 Pulse Oximetry 96 Oxygen Delivery Method 01/04/22 18:30 01/04/22 18:45 01/04/22 18:45 Temperature Pulse Rate 66 63 Respiratory Rate 17 16 Blood Pressure 126/86 Pulse Oximetry 96 98 Oxygen Delivery Method 01/04/22 19:00 01/04/22 19:00 01/04/22 19:15 Temperature Pulse Rate 65 59 L Respiratory Rate 17 24 Blood Pressure 143/82 H Pulse Oximetry 96 97 Oxygen Delivery Method 01/04/22 19:15 01/04/22 19:30 01/04/22 19:30 Temperature Pulse Rate 68 Respiratory Rate 21 Blood Pressure 121/79 136/83 Pulse Oximetry 98 Oxygen Delivery Method <Benja Cruz DO - Last Filed: 01/04/22 19:49> Orders Ordered: Discontinued Medications Aspirin (Aspirin 81 Mg Chew Tab) 324 mg PO NOW ONE Stop: 01/04/22 16:59 Last Admin: 01/04/22 17:18 Dose: 324 mg Documented By: SB Atorvastatin Calcium (Atorvastatin 20 Mg Tablet) 40 mg PO NOW ONE Stop: 01/04/22 18:19 Last Admin: 01/04/22 18:26 Dose: 40 mg Documented By: YASMIN Heparin Sodium (Porcine) (Heparin 5,000 Unit/Ml Vial) 4,000 unit IV NOW ONE Stop: 01/04/22 17:17 Last Admin: 01/04/22 17:21 Dose: 4,000 unit Documented By: SB Heparin Sodium/Dextrose (Heparin Drip) 25,000 unit in 500 mls @ 17.418 mls/hr IV CONT FELECIA; Protocol Last Admin: 01/04/22 17:26 Dose: 12 units/kg/hr, 17.418 mls/hr Documented By: SB Metoprolol Tartrate (Metoprolol Tartrate 5 Mg/5 Ml Inj) 5 mg IV NOW ONE Stop: 01/04/22 16:59 Last Admin: 01/04/22 17:45 Dose: Not Given Documented By: SB Metoprolol Tartrate (Metoprolol Ir 25 Mg Tablet) 25 mg PO NOW ONE Stop: 01/04/22 17:44 Last Admin: 01/04/22 17:49 Dose: 25 mg Documented By: SB Morphine Sulfate (Morphine 2 Mg/Ml Inj) 2 mg IV NOW ONE Stop: 01/04/22 16:59 Last Admin: 01/04/22 17:41 Dose: 2 mg Documented By: SB Nitroglycerin (Nitroglycerin 0.4 Mg Sl Tab) 0.4 mg SL [id number] PRN PRN Reason: Chest Pain Last Admin: 01/04/22 18:04 Dose: 0.4 mg Documented By: PEDRO LUIS Admin: 01/04/22 17:37 Dose: 0.4 mg Documented By: PEDRO LUIS Admin: 01/04/22 17:14 Dose: 0.4 mg Documented By: PEDRO LUIS Vital Signs Vital signs: Vital Signs - 8 hr 01/04/22 15:37 01/04/22 15:47 01/04/22 17:14 Temperature 98.7 F Pulse Rate 89 79 78 Respiratory Rate 20 21 Blood Pressure 171/96 H 170/106 H Pulse Oximetry 98 98 Oxygen Delivery Method Room Air 01/04/22 16:00 01/04/22 16:30 01/04/22 17:00 Temperature Pulse Rate 70 79 73 Respiratory Rate 17 15 21 Blood Pressure Pulse Oximetry 98 98 99 Oxygen Delivery Method 01/04/22 17:15 01/04/22 17:15 01/04/22 17:37 Temperature Pulse Rate 75 80 Respiratory Rate 26 H Blood Pressure 164/90 H 147/90 H Pulse Oximetry 99 Oxygen Delivery Method 01/04/22 17:20 01/04/22 17:20 01/04/22 17:25 Temperature Pulse Rate 76 87 Respiratory Rate 18 Blood Pressure 172/99 H Pulse Oximetry 97 96 Oxygen Delivery Method 01/04/22 17:25 01/04/22 17:30 01/04/22 17:30 Temperature Pulse Rate 79 Respiratory Rate 20 Blood Pressure 134/78 151/86 H Pulse Oximetry 96 Oxygen Delivery Method 01/04/22 17:36 01/04/22 17:36 01/04/22 17:37 Temperature Pulse Rate 77 83 Respiratory Rate 21 22 Blood Pressure 143/88 H Pulse Oximetry 96 96 Oxygen Delivery Method 01/04/22 17:37 01/04/22 17:40 01/04/22 17:40 Temperature Pulse Rate 74 Respiratory Rate 18 Blood Pressure 147/90 H 123/77 Pulse Oximetry 96 Oxygen Delivery Method 01/04/22 17:45 01/04/22 17:45 01/04/22 17:51 Temperature Pulse Rate 88 Respiratory Rate 19 Blood Pressure 122/69 136/77 Pulse Oximetry 95 Oxygen Delivery Method 01/04/22 17:51 01/04/22 17:52 01/04/22 17:52 Temperature Pulse Rate 84 76 Respiratory Rate 17 17 Blood Pressure 137/85 Pulse Oximetry 96 96 Oxygen Delivery Method 01/04/22 17:53 01/04/22 17:53 01/04/22 18:04 Temperature Pulse Rate 77 72 Respiratory Rate 22 Blood Pressure 135/84 133/88 Pulse Oximetry 95 Oxygen Delivery Method 01/04/22 17:55 01/04/22 17:55 01/04/22 18:00 Temperature Pulse Rate 73 Respiratory Rate 17 Blood Pressure 131/83 133/88 Pulse Oximetry 95 Oxygen Delivery Method 01/04/22 18:00 01/04/22 18:05 01/04/22 18:05 Temperature Pulse Rate 67 67 Respiratory Rate 15 17 Blood Pressure 133/84 Pulse Oximetry 96 96 Oxygen Delivery Method 01/04/22 18:10 01/04/22 18:10 01/04/22 18:12 Temperature Pulse Rate 71 76 Respiratory Rate 15 15 Blood Pressure 133/85 Pulse Oximetry 96 96 Oxygen Delivery Method 01/04/22 18:12 01/04/22 18:15 01/04/22 18:15 Temperature Pulse Rate 73 Respiratory Rate 18 Blood Pressure 131/86 136/86 Pulse Oximetry 95 Oxygen Delivery Method 01/04/22 18:25 01/04/22 18:25 01/04/22 18:30 Temperature Pulse Rate 84 Respiratory Rate 19 Blood Pressure 132/75 124/82 Pulse Oximetry 96 Oxygen Delivery Method 01/04/22 18:30 01/04/22 18:45 01/04/22 18:45 Temperature Pulse Rate 66 63 Respiratory Rate 17 16 Blood Pressure 126/86 Pulse Oximetry 96 98 Oxygen Delivery Method 01/04/22 19:00 01/04/22 19:00 01/04/22 19:15 Temperature Pulse Rate 65 59 L Respiratory Rate 17 24 Blood Pressure 143/82 H Pulse Oximetry 96 97 Oxygen Delivery Method 01/04/22 19:15 01/04/22 19:30 01/04/22 19:30 Temperature Pulse Rate 68 Respiratory Rate 21 Blood Pressure 121/79 136/83 Pulse Oximetry 98 Oxygen Delivery Method MDM - Chest Pain <Paul Metzger MD - Last Filed: 01/07/22 12:26> Lab Data Result diagrams: 01/04/22 15:45 01/04/22 15:45 Labs: Lab Results 01/04/22 01/04/22 01/04/22 Range/Units 15:45 15:45 15:45 WBC 10.5 (4.5-11.0) X10^3/uL RBC 5.66 (4.5-5.9) X10^6/uL Hgb 17.3 (13.5-17.5) g/dL Hct 50.7 (41-53) % MCV 89.4 (80-100) fL MCH 30.5 (26-34) PG MCHC 34.1 (30-36) % RDW 14.7 (11.6-14.8) % Plt Count 165 (150-400) X10^3/uL Neut % (Auto) 77.3 H (50-75) % Lymph % (Auto) 11.0 L (25-40) % [place] % (Auto) 6.8 (3-14) % Eos % (Auto) 4.4 H (2-4) % Baso % (Auto) 0.5 (0-2) % Neut # (Auto) 8100 H (6024-5780) /uL Lymph # (Auto) 1200 (9679-4767) /uL [place] # (Auto) 700 (0-900) /uL Eos # (Auto) 500 H (0-450) /uL Baso # (Auto) 100 (0-100) /uL PT 10.9 (10.1-12.7) SECONDS INR 1.0 (0.9-1.3) APTT 33 (26.4-36.2) SECONDS Sodium 143 (137-145) mmol/L Potassium 3.9 (3.4-5.1) mmol/L Chloride 101 (98-107) mmol/L Carbon Dioxide 33 H (22-32) mmol/L BUN 17 (9-20) mg/dL Creatinine 1.38 H (0.66-1.25) mg/dL Estimated GFR 54 L (>60) mL/min BUN/Creatinine Ratio 12.3 (6-22) Glucose 114 H (80-110) mg/dL Calcium 9.3 (8.4-10.2) mg/dL Magnesium 2.3 (1.6-2.3) mg/dL Total Bilirubin 0.6 (0.2-1.3) mg/dL AST 54 (17-59) IU/L ALT 18 (<50) IU/L Alkaline Phosphatase 123 (38-126) U/L Total Creatine Kinase 189 H (55-170) U/L CK-MB (CK-2) 13.50 H (<2.37) ng/mL CK-MB (CK-2) Rel Index 7.1 H* (1.5-5.0) % Troponin I 2.120 H* (0.01-0.034) ng/mL Total Protein 7.9 (6.3-8.2) g/dL Albumin 4.6 (3.5-5.0) g/dL Globulin 3.3 (1.7-4.1) g/dL Albumin/Globulin Ratio 1.4 (1.0-2.8) Lipase 46 (23-300) U/L SARS-CoV-2 (PCR) (Negative) 01/04/22 Range/Units 15:52 WBC (4.5-11.0) X10^3/uL RBC (4.5-5.9) X10^6/uL Hgb (13.5-17.5) g/dL Hct (41-53) % MCV (80-100) fL MCH (26-34) PG MCHC (30-36) % RDW (11.6-14.8) % Plt Count (150-400) X10^3/uL Neut % (Auto) (50-75) % Lymph % (Auto) (25-40) % [place] % (Auto) (3-14) % Eos % (Auto) (2-4) % Baso % (Auto) (0-2) % Neut # (Auto) (0344-2337) /uL Lymph # (Auto) (2655-6928) /uL [place] # (Auto) (0-900) /uL Eos # (Auto) (0-450) /uL Baso # (Auto) (0-100) /uL PT (10.1-12.7) SECONDS INR (0.9-1.3) APTT (26.4-36.2) SECONDS Sodium (137-145) mmol/L Potassium (3.4-5.1) mmol/L Chloride (98-107) mmol/L Carbon Dioxide (22-32) mmol/L BUN (9-20) mg/dL Creatinine (0.66-1.25) mg/dL Estimated GFR (>60) mL/min BUN/Creatinine Ratio (6-22) Glucose (80-110) mg/dL Calcium (8.4-10.2) mg/dL Magnesium (1.6-2.3) mg/dL Total Bilirubin (0.2-1.3) mg/dL AST (17-59) IU/L ALT (<50) IU/L Alkaline Phosphatase (38-126) U/L Total Creatine Kinase (55-170) U/L CK-MB (CK-2) (<2.37) ng/mL CK-MB (CK-2) Rel Index (1.5-5.0) % Troponin I (0.01-0.034) ng/mL Total Protein (6.3-8.2) g/dL Albumin (3.5-5.0) g/dL Globulin (1.7-4.1) g/dL Albumin/Globulin Ratio (1.0-2.8) Lipase (23-300) U/L SARS-CoV-2 (PCR) Negative (Negative) Imaging Data Chest x-ray: Radiologist's Impression: IMPRESSION:? No acute cardiopulmonary abnormality. ? Calcified pleural plaques. ? ? Dictated by: Nicholas Silva M.D. on 01/04/2022 at 16:44 ? ? Approved by: Nicholas Silva M.D. on 01/04/2022 at 16:45 ? ECG Data Interpretation: ECG obtained at 3:47 p.m. today shows a sinus rhythm at 64 beats per minute with no acute ischemia seen. [facility] Narrative Medical decision making narrative: Patient with a classic VT pain story comes with a normal EKG 2 days after the event. No Q-waves seen. Troponin is markedly elevated. Will treat with nitrates, heparin etc. and try to transfer him to hospital with cardiac catheterization capability. <Benja Cruz, DO - Last Filed: 01/04/22 19:49> Lab Data Labs: Lab Results 01/04/22 01/04/22 01/04/22 Range/Units 15:45 15:45 15:45 WBC 10.5 (4.5-11.0) X10^3/uL RBC 5.66 (4.5-5.9) X10^6/uL Hgb 17.3 (13.5-17.5) g/dL Hct 50.7 (41-53) % MCV 89.4 (80-100) fL MCH 30.5 (26-34) PG MCHC 34.1 (30-36) % RDW 14.7 (11.6-14.8) % Plt Count 165 (150-400) X10^3/uL Neut % (Auto) 77.3 H (50-75) % Lymph % (Auto) 11.0 L (25-40) % [place] % (Auto) 6.8 (3-14) % Eos % (Auto) 4.4 H (2-4) % Baso % (Auto) 0.5 (0-2) % Neut # (Auto) 8100 H (7650-4383) /uL Lymph # (Auto) 1200 (8526-6523) /uL [place] # (Auto) 700 (0-900) /uL Eos # (Auto) 500 H (0-450) /uL Baso # (Auto) 100 (0-100) /uL PT 10.9 (10.1-12.7) SECONDS INR 1.0 (0.9-1.3) APTT 33 (26.4-36.2) SECONDS Sodium 143 (137-145) mmol/L Potassium 3.9 (3.4-5.1) mmol/L Chloride 101 (98-107) mmol/L Carbon Dioxide 33 H (22-32) mmol/L BUN 17 (9-20) mg/dL Creatinine 1.38 H (0.66-1.25) mg/dL Estimated GFR 54 L (>60) mL/min BUN/Creatinine Ratio 12.3 (6-22) Glucose 114 H (80-110) mg/dL Calcium 9.3 (8.4-10.2) mg/dL Magnesium 2.3 (1.6-2.3) mg/dL Total Bilirubin 0.6 (0.2-1.3) mg/dL AST 54 (17-59) IU/L ALT 18 (<50) IU/L Alkaline Phosphatase 123 (38-126) U/L Total Creatine Kinase 189 H (55-170) U/L CK-MB (CK-2) 13.50 H (<2.37) ng/mL CK-MB (CK-2) Rel Index 7.1 H* (1.5-5.0) % Troponin I 2.120 H* (0.01-0.034) ng/mL Total Protein 7.9 (6.3-8.2) g/dL Albumin 4.6 (3.5-5.0) g/dL Globulin 3.3 (1.7-4.1) g/dL Albumin/Globulin Ratio 1.4 (1.0-2.8) Lipase 46 (23-300) U/L SARS-CoV-2 (PCR) (Negative) 01/04/22 Range/Units 15:52 WBC (4.5-11.0) X10^3/uL RBC (4.5-5.9) X10^6/uL Hgb (13.5-17.5) g/dL Hct (41-53) % MCV (80-100) fL MCH (26-34) PG MCHC (30-36) % RDW (11.6-14.8) % Plt Count (150-400) X10^3/uL Neut % (Auto) (50-75) % Lymph % (Auto) (25-40) % [place] % (Auto) (3-14) % Eos % (Auto) (2-4) % Baso % (Auto) (0-2) % Neut # (Auto) (1256-8226) /uL Lymph # (Auto) (8705-7552) /uL [place] # (Auto) (0-900) /uL Eos # (Auto) (0-450) /uL Baso # (Auto) (0-100) /uL PT (10.1-12.7) SECONDS INR (0.9-1.3) APTT (26.4-36.2) SECONDS Sodium (137-145) mmol/L Potassium (3.4-5.1) mmol/L Chloride (98-107) mmol/L Carbon Dioxide (22-32) mmol/L BUN (9-20) mg/dL Creatinine (0.66-1.25) mg/dL Estimated GFR (>60) mL/min BUN/Creatinine Ratio (6-22) Glucose (80-110) mg/dL Calcium (8.4-10.2) mg/dL Magnesium (1.6-2.3) mg/dL Total Bilirubin (0.2-1.3) mg/dL AST (17-59) IU/L ALT (<50) IU/L Alkaline Phosphatase (38-126) U/L Total Creatine Kinase (55-170) U/L CK-MB (CK-2) (<2.37) ng/mL CK-MB (CK-2) Rel Index (1.5-5.0) % Troponin I (0.01-0.034) ng/mL Total Protein (6.3-8.2) g/dL Albumin (3.5-5.0) g/dL Globulin (1.7-4.1) g/dL Albumin/Globulin Ratio (1.0-2.8) Lipase (23-300) U/L SARS-CoV-2 (PCR) Negative (Negative) MDM Narrative Medical decision making narrative: Patient with a classic VT pain story comes with a normal EKG 2 days after the event. No Q-waves seen. Troponin is markedly elevated. Will treat with nitrates, heparin etc. and try to transfer him to hospital with cardiac catheterization capability. [1800] (Anthony) Patient received in sign out from [Domenica]. I have reviewed the clinical course and performed an independent history and physical exam. 1899 - Dr. Lester (Cardio) from [place] accepts patient in transfer, however they are not in-house overnight and will request patient be transferred at 7 or 8 in the morning, they will contact us with details 1930 - call back from [place], they will accept tonight. ALS transport contacted, to arrive at 1945 <Benja Crzu DO - Last Filed: 01/04/22 19:49> Critical Care Time Critical Care Time: Yes Total Critical Care Time: 30 Attestation: The high probability of a clinically significant, sudden or life threatening deterioration of the [CV] system(s) required my full and direct attention, intervention and personal management. The aggregate critical care time was [30] minutes. This time is in addition to time spent performing reported procedures but includes the following: [x] Data Review and interpretation [x] Patient assessment and monitoring of vital signs [x] Documentation [x] Medication orders and management Discharge Plan Departure Patient Disposition: [facility] Clinical Impression: Acute non-ST elevation myocardial infarction (NSTEMI)
[2022-01-04 17:14] LABS: Prothrombin Time 10.9 SECONDS (10.1-12.7)
[2022-01-04] MEDS: NITROGLYCERIN 0.4 MG SL TAB SL ×3 (17:14→18:04)
[2022-01-04 17:16] LABS: COVID19 -Nasal RAPID Negative (Negative)
[2022-01-04 17:17] LABS: PTT Partial Thromboplastin Tim 33 SECONDS (26.4-36.2)
[2022-01-04] MEDS: ASPIRIN 81 MG CHEW TAB 324 MG PO (17:18)
[2022-01-04] MEDS: HEPARIN 5,000 UNIT/ML VIAL 4000 UNIT IV (17:21)
[2022-01-04] MEDS: HEPARIN DRIP 25,000 UNIT/500 ML IV.SOLN 17.418 UNIT IV (17:26)
[2022-01-04] MEDS: MORPHINE 2 MG/ML INJ IV (17:41)
[2022-01-04] MEDS: METOPROLOL IR 25 MG TABLET PO (17:49)
[2022-01-04] MEDS: ATORVASTATIN 20 MG TABLET 40 MG PO (18:26)
--- NOTE | 2022-02-01 12:50 | PC.NURSE ---
Late entry: Per primary RN. Heparin gtt started at 1726 continued at documented rate with critical care transport services. Completed for purposes of [facility] documentation only.
== END 2022-01-04 18:33 | disposition short-term general hospital (02) ==
PROVIDERS: Family Medicine Addiction Medicine; Emergency Provider Emergency Medicine
DX: I21.4 Non-ST elevation (NSTEMI) myocardial infarction (principal); Z20.822 Contact with and (suspected) exposure to COVID-19
CPT/HCPCS: 36415; 71045; 80053; 82550; 82553; 83690; 83735; 84484; 85025; 85610; 85730; 87635; 93005; 93010; 96365; 96366; 96375; 99284; C9803; J1644; J2270

== ENCOUNTER 2022-08-27 10:12 | Emergency (ER) | payer MEDICARE, MEDICAID, SELFPAY ==
[2022-08-27] VITALS (27 sets, daily range): BP systolic 122–167; BP diastolic 70–95; PULSE 51–84; RESP 13–31; TEMP 36.7; O2SAT 99–100; BMI 21.9
--- NOTE | 2022-08-27 10:20 | DI.RAD.S_ITS ---
PROCEDURE: XR CHEST 1V INDICATIONS: chest pain TECHNIQUE: One view of the chest was acquired. COMPARISON: [facility], CR, XR CHEST 1V, 01/04/2022, 16:17. FINDINGS: Surgical changes and devices: None. Lungs and pleura: Lungs are clear. No pleural effusions or pneumothorax. There is a 1.4 x 1.0 cm calcified nodule in the right mid lung which is unchanged. Mediastinum: Mediastinal contours appear normal. Heart size is normal. Bones and chest wall: No suspicious bony lesions. Overlying soft tissues appear unremarkable. IMPRESSION: No acute cardiopulmonary abnormality. Dictated by: Mannie Murphy M.D. on 08/27/2022 at 10:00 Approved by: Mannie Murphy M.D. on 08/27/2022 at 10:01
--- NOTE | 2022-08-27 10:38 | ED_ITS ---
HPI - Chest Pain General Chief Complaint: Chest Pain Stated Complaint: cardiac symptoms Time Seen by Provider: 08/27/22 10:27 Source: patient Mode of arrival: Ambulatory Limitations: no limitations History of Present Illness HPI narrative: Patient is a 71-year-old male. known history of coronary artery disease. Was seen here in the emergency department last year and was transferred. Had a non ST elevation [place]. Had stents placed. Here for evaluation of chest discomfort that has been off and on for the past 2 days that he states feels similar to his prior episodes. He states that it is brought on by exertion. Currently does not have any chest pain. Since the time he had stents placed until 2 days ago h sil has not had any symptoms. He does not have nitro at home. He is no abdominal pain nor nausea nor vomiting nor lower extremity swelling. Related Data Previous Rx's Medication Instructions Recorded nitroglycerin 0.3 mg sublingual 0.3 mg sublingual Q5-15M PRN chest 08/27/22 tablet pain #30 tabs Allergies Allergy/AdvReac Type Severity Reaction Status Date / Time No Known Drug Allergies Allergy Verified 08/27/22 10:20 Review of Systems Constitutional Constitutional: Reports system reviewed and no additional complaints, except as documented Cardiovascular Cardiovascular: Reports system reviewed and no additional complaints, except as documented Respiratory Respiratory: Reports system reviewed and no additional complaints, except as documented Gastrointestinal Gastrointestinal: Reports system reviewed and no additional complaints, except as documented Integumentary/Breasts Skin/Breast: Reports system reviewed and no additional complaints, except as documented Patient History Medical History COPD (chronic obstructive pulmonary disease) Lung cancer Social History Smoking Status: Current every day smoker Smoking Status: Current every day smoker alcohol intake frequency: 0-2 drinks per day Substance Use Type: does not use Exam Initial Vital Signs Initial Vital Signs: Vital Signs Temperature 98.0 F 08/27/22 10:14 Pulse Rate 51 L 08/27/22 10:14 Respiratory Rate 14 08/27/22 10:14 Blood Pressure 153/95 H 08/27/22 10:14 Pulse Oximetry 99 08/27/22 10:14 Oxygen Delivery Method Room Air 08/27/22 10:14 Const General: cooperative and comfortable Chest Chest: No crepitus and No tenderness Resp Effort & Inspection: normal respiratory effort Auscultation: clear to auscultation bilaterally Cardio Rate: regular rate Rhythm: regular rhythm GI Inspection: normal to inspection Neuro General: patient alert, patient awake and moves all extremities Speech: speech normal Extrem General: No edema Course Orders Ordered: ED Orders 08/27/22 10:20 XR chest 1V Stat EKG-12 Lead Stat 08/27/22 10:44 Complete Blood Count AUTO DIFF Stat Comprehensive Metabolic Panel Stat Lipase Stat Magnesium Stat PTT Partial Thromboplastin Power Stat Prothrombin Time INR Stat Troponin & CK Cardiac Panel Stat 08/27/22 12:40 Troponin & CK Cardiac Panel Stat Discontinued Medications Nitroglycerin (Nitroglycerin 0.4 Mg Sl Tab) 0.4 mg SL [id number] PRN PRN Reason: Chest Pain Vital Signs Vital signs: Vital Signs - 8 hr 08/27/22 10:14 08/27/22 10:19 08/27/22 10:21 Temperature 98.0 F Pulse Rate 51 L Respiratory Rate 14 Blood Pressure 153/95 H 167/78 H 155/82 H Pulse Oximetry 99 Oxygen Delivery Method Room Air 08/27/22 10:22 08/27/22 10:30 08/27/22 10:30 Temperature Pulse Rate 75 76 Respiratory Rate 15 17 Blood Pressure 152/80 H Pulse Oximetry 99 Oxygen Delivery Method 08/27/22 10:50 08/27/22 10:50 08/27/22 11:00 Temperature Pulse Rate 77 Respiratory Rate 20 Blood Pressure 133/87 145/79 H Pulse Oximetry 100 Oxygen Delivery Method 08/27/22 11:00 08/27/22 11:10 08/27/22 11:10 Temperature Pulse Rate 72 71 Respiratory Rate 19 18 Blood Pressure 146/84 H Pulse Oximetry 100 99 Oxygen Delivery Method Room Air 08/27/22 11:20 08/27/22 11:20 08/27/22 11:30 Temperature Pulse Rate 70 Respiratory Rate 16 Blood Pressure 146/85 H 144/80 H Pulse Oximetry 100 Oxygen Delivery Method 08/27/22 11:30 08/27/22 11:40 08/27/22 11:40 Temperature Pulse Rate 73 79 Respiratory Rate 16 14 Blood Pressure 122/80 Pulse Oximetry 99 100 Oxygen Delivery Method Room Air Room Air 08/27/22 11:50 08/27/22 11:50 08/27/22 12:00 Temperature Pulse Rate 70 Respiratory Rate 15 Blood Pressure 152/82 H 138/74 Pulse Oximetry 99 Oxygen Delivery Method Room Air 08/27/22 12:00 08/27/22 12:10 08/27/22 12:10 Temperature Pulse Rate 66 67 Respiratory Rate 16 13 Blood Pressure 138/79 Pulse Oximetry 99 99 Oxygen Delivery Method 08/27/22 12:20 08/27/22 12:20 08/27/22 12:30 Temperature Pulse Rate 76 Respiratory Rate 16 Blood Pressure 143/82 H 140/78 Pulse Oximetry 99 Oxygen Delivery Method 08/27/22 12:30 08/27/22 12:40 08/27/22 12:40 Temperature Pulse Rate 68 80 Respiratory Rate 29 H 27 H Blood Pressure 142/84 H Pulse Oximetry 99 99 Oxygen Delivery Method 08/27/22 12:50 08/27/22 12:50 08/27/22 13:00 Temperature Pulse Rate 67 Respiratory Rate 31 H Blood Pressure 135/75 143/82 H Pulse Oximetry 100 Oxygen Delivery Method 08/27/22 13:00 08/27/22 13:10 08/27/22 13:10 Temperature Pulse Rate 69 69 Respiratory Rate 14 17 Blood Pressure 147/83 H Pulse Oximetry 100 99 Oxygen Delivery Method Room Air 08/27/22 13:20 08/27/22 13:20 08/27/22 13:30 Temperature Pulse Rate 68 Respiratory Rate 16 Blood Pressure 155/79 H 153/76 H Pulse Oximetry 99 Oxygen Delivery Method 08/27/22 13:30 08/27/22 13:40 08/27/22 13:40 Temperature Pulse Rate 68 67 Respiratory Rate 15 17 Blood Pressure 161/82 H Pulse Oximetry 99 99 Oxygen Delivery Method Room Air 08/27/22 13:50 08/27/22 13:50 08/27/22 14:00 Temperature Pulse Rate 75 71 Respiratory Rate 17 18 Blood Pressure 144/85 H Pulse Oximetry 100 100 Oxygen Delivery Method 08/27/22 14:01 08/27/22 14:01 08/27/22 14:11 Temperature Pulse Rate 73 84 Respiratory Rate 18 Blood Pressure 155/78 H Pulse Oximetry 100 Oxygen Delivery Method Room Air 08/27/22 14:11 Temperature Pulse Rate Respiratory Rate Blood Pressure 143/70 H Pulse Oximetry Oxygen Delivery Method MDM - Chest Pain Medical Records Data Attestation: I reviewed the patient's medical records. Lab Data Attestation: I reviewed the patient's lab results. 08/27/22 10:44 08/27/22 10:44 Labs: Lab Results 08/27/22 08/27/22 08/27/22 Range/Units 10:44 10:44 10:44 WBC 7.1 (4.5-11.0) X10^3/uL RBC 5.12 (4.5-5.9) X10^6/uL Hgb 15.1 (13.5-17.5) g/dL Hct 46.1 (41-53) % MCV 90.0 (80-100) fL MCH 29.5 (26-34) PG MCHC 32.8 (30-36) % RDW 14.8 (11.6-14.8) % Plt Count 148 L (150-400) X10^3/uL Neut % (Auto) 67.7 (50-75) % Lymph % (Auto) 17.7 L (25-40) % [place] % (Auto) 8.9 (3-14) % Eos % (Auto) 5.0 H (2-4) % Baso % (Auto) 0.7 (0-2) % Neut # (Auto) 4800 (9722-4173) /uL Lymph # (Auto) 1300 (3797-6352) /uL [place] # (Auto) 600 (0-900) /uL Eos # (Auto) 400 (0-450) /uL Baso # (Auto) 100 (0-100) /uL PT 12.4 (10.1-12.7) SECONDS INR 1.1 (0.9-1.3) APTT 32 (26-36) SECONDS Sodium 137 (137-145) mmol/L Potassium 4.7 (3.4-5.1) mmol/L Chloride 104 (98-107) mmol/L Carbon Dioxide 28 (22-32) mmol/L BUN 24 H (9-20) mg/dL Creatinine 1.39 H (0.66-1.25) mg/dL Estimated GFR 54 L (>60) mL/min BUN/Creatinine Ratio 17.3 (6-22) Glucose 99 (80-110) mg/dL Calcium 8.4 (8.4-10.2) mg/dL Magnesium 2.1 (1.6-2.3) mg/dL Total Bilirubin 0.6 (0.2-1.3) mg/dL AST 100 H (17-59) IU/L ALT 119 H (<50) IU/L Alkaline Phosphatase 129 H (38-126) U/L Total Creatine Kinase 61 (55-170) U/L CK-MB (CK-2) TNP CK-MB (CK-2) Rel Index TNP Troponin I < 0.012 (0.01-0.034) ng/mL Total Protein 6.8 (6.3-8.2) g/dL Albumin 4.0 (3.5-5.0) g/dL Globulin 2.8 (1.7-4.1) g/dL Albumin/Globulin Ratio 1.4 (1.0-2.8) Lipase 51 (23-300) U/L 08/27/22 Range/Units 12:40 WBC (4.5-11.0) X10^3/uL RBC (4.5-5.9) X10^6/uL Hgb (13.5-17.5) g/dL Hct (41-53) % MCV (80-100) fL MCH (26-34) PG MCHC (30-36) % RDW (11.6-14.8) % Plt Count (150-400) X10^3/uL Neut % (Auto) (50-75) % Lymph % (Auto) (25-40) % [place] % (Auto) (3-14) % Eos % (Auto) (2-4) % Baso % (Auto) (0-2) % Neut # (Auto) (6562-8947) /uL Lymph # (Auto) (8043-6398) /uL [place] # (Auto) (0-900) /uL Eos # (Auto) (0-450) /uL Baso # (Auto) (0-100) /uL PT (10.1-12.7) SECONDS INR (0.9-1.3) APTT (26-36) SECONDS Sodium (137-145) mmol/L Potassium (3.4-5.1) mmol/L Chloride (98-107) mmol/L Carbon Dioxide (22-32) mmol/L BUN (9-20) mg/dL Creatinine (0.66-1.25) mg/dL Estimated GFR (>60) mL/min BUN/Creatinine Ratio (6-22) Glucose (80-110) mg/dL Calcium (8.4-10.2) mg/dL Magnesium (1.6-2.3) mg/dL Total Bilirubin (0.2-1.3) mg/dL AST (17-59) IU/L ALT (<50) IU/L Alkaline Phosphatase (38-126) U/L Total Creatine Kinase 57 (55-170) U/L CK-MB (CK-2) TNP CK-MB (CK-2) Rel Index TNP Troponin I < 0.012 (0.01-0.034) ng/mL Total Protein (6.3-8.2) g/dL Albumin (3.5-5.0) g/dL Globulin (1.7-4.1) g/dL Albumin/Globulin Ratio (1.0-2.8) Lipase (23-300) U/L Imaging Data Chest x-ray: Radiologist's Impression: ROCEDURE:? XR CHEST 1V ? INDICATIONS:? chest pain ? TECHNIQUE:? One view of the chest was acquired.? ? COMPARISON:? [facility], , XR CHEST 1V, 01/04/2022, 16:17. ? FINDINGS:? ? Surgical changes and devices:? None.? ? Lungs and pleura:? Lungs are clear.? No pleural effusions or pneumothorax.? There is a 1.4 x 1.0 cm calcified nodule in the right mid lung which is unchanged. ? Mediastinum:? Mediastinal contours appear normal.? Heart size is normal.? ? Bones and chest wall:? No suspicious bony lesions.? Overlying soft tissues appear unremarkable.? ? IMPRESSION:? No acute cardiopulmonary abnormality. ECG Data Attestation: I personally reviewed and interpreted this ECG as follows: Interpretation: Sinus rhythm Ventricular rate is 75 Normal axis Normal QRS PVC No ST T wave changes MDM Narrative Medical decision making narrative: Patient has known coronary artery disease. His EKGs unremarkable. Chest x-ray is unremarkable. He has been asymptomatic since being here in the ER. Troponins are negative x2. He has a follow-up with his producer director at the beginning of next week. He does not have any nitroglycerin at home. Given his workup here in the ER was sent home with a prescription for nitroglycerin and have him keep his scheduled appointment with his producer director. We will not make any other medication changes. I do suspect that this is angina that is causing his discomfort and most likely will need to be on some sort of long-acting nitrate but I will leave this up to his producer director. Patient was given return precautions. He expressed understanding and agreement. Discharge Plan Departure Patient Disposition: Home Clinical Impression: Chest pain Instructions: DI for Chest Pain Activity Restrictions/Additional Instructions: Recommend that you continue to take all of your medications as directed and keep your scheduled follow-up appointment next week with your producer director. Return to the emergency department for any new symptoms. Prescriptions: New nitroglycerin 0.3 mg tablet, sublingual 0.3 mg sublingual Q5-15M PRN (Reason: chest pain) Qty: 30 0RF Rx Instructions: do not exceed 3 doses per episode Stand Alone Forms: Patient Portal/API
[2022-08-27 10:55] LABS: Add Manual Diff / Slide Review NO; Basophils Absolute Auto 100 /uL (0-100); Basophils Percent Auto 0.7 % (0-2); Eosinophils Absolute Auto 400 /uL (0-450); Hematocrit 46.1 % (41-53); Hemoglobin 15.1 g/dL (13.5-17.5); Lymphocytes Absolute Auto 1300 /uL (1100-4500); Lymphocytes Percent Auto 17.7 % (25-40); Mean Corpuscular HGB Conc 32.8 % (30-36); Mean Corpuscular Hemoglobin 29.5 PG (26-34); Monocytes Absolute Auto 600 /uL (0-900); Monocytes Percent Auto 8.9 % (3-14); Neutrophils Absolute Auto 4800 /uL (1500-7000); Neutrophils Percent Auto 67.7 % (50-75); Platelet Count 148 X10^3/uL (150-400); Red Blood Cell Count 5.12 X10^6/uL (4.5-5.9); Red Cell Distribution Width 14.8 % (11.6-14.8); White Blood Cell Count 7.1 X10^3/uL (4.5-11.0)
[2022-08-27 11:05] LABS: INR 1.1 (0.9-1.3); Prothrombin Time 12.4 SECONDS (10.1-12.7)
[2022-08-27 11:07] LABS: PTT Partial Thromboplastin Tim 32 SECONDS (26-36)
[2022-08-27 11:12] LABS: Alanine Aminotransferase 119 IU/L (<50); Albumin Globulin Ratio 1.4 (1.0-2.8); Alkaline Phosphatase 129 U/L (38-126); Aspartate Aminotransferase 100 IU/L (17-59); BUN Creatinine Ratio 17.3 (6-22); Bilirubin Total 0.6 mg/dL (0.2-1.3); Blood Urea Nitrogen 24 mg/dL (9-20); Calcium 8.4 mg/dL (8.4-10.2); Carbon Dioxide 28 mmol/L (22-32); Chloride 104 mmol/L (98-107); Creatine Kinase 61 U/L (55-170); Estimated Glomerular Filt Rate 54 mL/min (>60); Globulin 2.8 g/dL (1.7-4.1); Glucose 99 mg/dL (80-110); HEMOLYSIS 29 (0-50); Lipase 51 U/L (23-300); Magnesium 2.1 mg/dL (1.6-2.3); Potassium 4.7 mmol/L (3.4-5.1); Sodium 137 mmol/L (137-145); Total Protein 6.8 g/dL (6.3-8.2)
[2022-08-27 11:26] LABS: Troponin I < 0.012 ng/mL (0.01-0.034)
[2022-08-27 12:59] LABS: Creatine Kinase 57 U/L (55-170)
[2022-08-27 13:12] LABS: Troponin I < 0.012 ng/mL (0.01-0.034)
== END 2022-08-27 14:16 | disposition home or self-care (01) ==
PROVIDERS: Emergency Provider Emergency Medicine
DX: R07.9 Chest pain, unspecified (principal)
CPT/HCPCS: 36415; 71045; 80053; 82550; 83690; 83735; 84484; 85025; 85610; 85730; 93005; 93010; 99284

== ENCOUNTER 2022-09-07 20:57 | Emergency (ER) | payer MEDICARE, MEDICAID, SELFPAY ==
[2022-09-07] VITALS (10 sets, daily range): BP systolic 118–153; BP diastolic 65–92; PULSE 56–99; RESP 12–18; TEMP 36.6–36.8; O2SAT 97–100; BMI 21.7
--- NOTE | 2022-09-07 21:12 | DI.RAD.S_ITS ---
PROCEDURE: XR CHEST 1V INDICATIONS: chest pain TECHNIQUE: One view of the chest was acquired. COMPARISON: [facility], CR, XR CHEST 2V, 10/25/2018, 7:58. [facility], CR, XR CHEST 1V, 01/04/2022, 16:17. [facility], CR, XR CHEST 1V, 08/27/2022, 10:18. FINDINGS: Surgical changes and devices: None. Lungs and pleura: There is an irregular nodular opacity redemonstrated within the left apex, similar in appearance compared to the prior studies and likely representing scarring. No acute consolidation. No pleural effusions or pneumothorax. Mediastinum: Mediastinal contours appear normal. Heart size is normal. Bones and chest wall: No suspicious bony lesions. Overlying soft tissues appear unremarkable. IMPRESSION: 1. No definite acute cardiopulmonary disease. 2. Irregular nodular opacity in the left apex redemonstrated likely representing scarring given similar appearance over time. Dictated by: Rao Sims M.D. on 09/07/2022 at 22:41 Approved by: Rao Sims M.D. on 09/07/2022 at 22:42
[2022-09-07 21:37] LABS: Add Manual Diff / Slide Review NO; Basophils Absolute Auto 100 /uL (0-100); Eosinophils Absolute Auto 500 /uL (0-450); Eosinophils Percent Auto 6.1 % (2-4); Hematocrit 43.6 % (41-53); Hemoglobin 14.4 g/dL (13.5-17.5); Lymphocytes Absolute Auto 1400 /uL (1100-4500); Lymphocytes Percent Auto 18.7 % (25-40); Mean Corpuscular HGB Conc 33.1 % (30-36); Mean Corpuscular Hemoglobin 29.8 PG (26-34); Monocytes Absolute Auto 600 /uL (0-900); Monocytes Percent Auto 7.9 % (3-14); Neutrophils Absolute Auto 5100 /uL (1500-7000); Neutrophils Percent Auto 66.3 % (50-75); Platelet Count 175 X10^3/uL (150-400); Red Blood Cell Count 4.84 X10^6/uL (4.5-5.9); Red Cell Distribution Width 14.7 % (11.6-14.8); White Blood Cell Count 7.6 X10^3/uL (4.5-11.0)
[2022-09-07 21:51] LABS: PTT Partial Thromboplastin Tim 29 SECONDS (26-36)
[2022-09-07 21:58] LABS: D Dimer 489 ng/ml (<500)
[2022-09-07 22:04] LABS: Erythrocyte Sedimentation Rate 3 MM/HR (0-15)
[2022-09-07 22:06] LABS: Alanine Aminotransferase 27 IU/L (<50); Albumin 3.9 g/dL (3.5-5.0); Albumin Globulin Ratio 1.4 (1.0-2.8); Alkaline Phosphatase 134 U/L (38-126); Aspartate Aminotransferase 28 IU/L (17-59); BUN Creatinine Ratio 16.6 (6-22); Bilirubin Total 0.3 mg/dL (0.2-1.3); Blood Urea Nitrogen 25 mg/dL (9-20); Calcium 8.5 mg/dL (8.4-10.2); Carbon Dioxide 30 mmol/L (22-32); Chloride 105 mmol/L (98-107); Creatine Kinase 111 U/L (55-170); Estimated Glomerular Filt Rate 48 mL/min (>60); Globulin 2.7 g/dL (1.7-4.1); Glucose 105 mg/dL (80-110); Lipase 56 U/L (23-300); Magnesium 2.2 mg/dL (1.6-2.3); Potassium 3.8 mmol/L (3.4-5.1); Sodium 141 mmol/L (137-145); Total Protein 6.6 g/dL (6.3-8.2)
[2022-09-07 22:14] LABS: CKMB % Relative Index 3.1 % (1.5-5.0); Creatine Kinase MB 3.48 ng/mL (<2.37); HEMOLYSIS 19 (0-50)
[2022-09-07 22:32] LABS: C-Reactive Protein Quant 0.9 mg/dL (<1.0)
[2022-09-07 22:45] LABS: Troponin I 0.808 ng/mL (0.01-0.034)
--- NOTE | 2022-09-07 22:49 | ED.CHESTPAIN ---
HPI - Chest Pain General Chief Complaint: Chest Pain Stated Complaint: chest pain Time Seen by Provider: 09/07/22 21:13 Source: patient Mode of arrival: Ambulatory Limitations: no limitations History of Present Illness HPI narrative: 71-year-old male smoker with history of coronary artery disease status post NSTEMI and stent placement in December presents with a chief complaint of increasing episodes of chest pain with exertion over the past 2 weeks. Today he states that he developed much more severe pain and this time while at rest, stating that lasted longer and radiated into his shoulder and jaw. He was still having pain on his arrival which promptly resolved with the use of nitro. He also admits to increasing exercise intolerance. He states he has been taking his medications as directed. He denies any nausea vomiting or diarrhea Related Data Home Medications Medication Instructions Recorded Confirmed atorvastatin 80 mg tablet 80 mg BEDTIME 09/07/22 09/07/22 lisinopril 10 mg tablet 10 mg DAILY 09/07/22 09/07/22 prasugrel 10 mg tablet 10 mg DAILY 09/07/22 09/07/22 Previous Rx's Medication Instructions Recorded nitroglycerin 0.3 mg sublingual 0.3 mg sublingual Q5-15M PRN chest 08/27/22 tablet pain #30 tabs Allergies Allergy/AdvReac Type Severity Reaction Status Date / Time No Known Drug Allergies Allergy Verified 08/27/22 10:20 Review of Systems Review of Systems Narrative: GENERAL: Denies chills, fatigue, malaise, fever, sweats. HEENT: Denies sinus pain, ear pain, sore throat, difficulty swallowing, dizziness. RESPIRATORY: See HPI CARDIOVASCULAR: See HPI GASTROINTESTINAL: Denies nausea, vomiting, abdominal pain, diarrhea, constipation, melena. : Denies dysuria, frequency, incontinence, hematuria, urinary retention. MUSCULOSKELETAL: denies weakness, joint pain, or bony pain SKIN: Denies rash, skin lesions, or other NEUROLOGIC: Denies weakness, headache, numbness, change in speech, confusion, seizures, incoordination. PSYCHIATRIC: No concerning psychosocial issues. 12 point review of systems is negative except for those stated above Patient History Medical History COPD (chronic obstructive pulmonary disease) Lung cancer Social History Smoking Status: Current every day smoker Smoking Status: Current every day smoker alcohol intake frequency: 0-2 drinks per day Substance Use Type: does not use Exam Narrative Exam Narrative: GENERAL: [71] year old patient appears stated age. Thin, in mild distress. HEAD: Atraumatic. Normocephalic. EYES: Pupils equal round and reactive. Extraocular motions intact. No scleral icterus. No injection or drainage. ENT: Nose without bleeding, purulent drainage. Throat without erythema, tonsillar hypertrophy or exudate. Airway patent. NECK: Trachea midline. Non tender CARDIOVASCULAR: Regular rate and rhythm without murmurs, gallops, or rubs. RESPIRATORY: Clear to auscultation. Breath sounds equal bilaterally. No wheezes, rales, or rhonchi. GASTROINTESTINAL: Abdomen soft, non-tender, nondistended. EXTREMITIES: No edema or joint tenderness. BACK: Nontender without deformity or crepitance. No flank tenderness. NEURO: AOx3. SKIN: No rash or erythema of visible areas Initial Vital Signs Initial Vital Signs: Vital Signs Temperature 97.8 F 09/07/22 21:07 Pulse Rate 99 H 09/07/22 21:07 Respiratory Rate 17 09/07/22 21:07 Blood Pressure 150/89 H 09/07/22 21:07 Pulse Oximetry 99 09/07/22 21:07 Oxygen Delivery Method Room Air 09/07/22 21:07 Course Orders Ordered: ED Orders 09/07/22 21:12 XR chest 1V Stat EKG-12 Lead Stat 09/07/22 21:26 CRP [C-Reactive Protein Quant] Stat Complete Blood Count AUTO DIFF Stat Comprehensive Metabolic Panel Stat D Dimer Stat ESR [Erythrocyte Sedimentation Rate] Stat Lipase Stat Magnesium Stat PTT Partial Thromboplastin Power Stat Prothrombin Time INR Stat Troponin & CK Cardiac Panel Stat 09/07/22 22:50 Trop I [Troponin I] Stat 09/07/22 23:35 COVID19 -Nasal RAPID Stat 09/08/22 05:00 PTT Partial Thromboplastin Power Q6H 09/08/22 11:00 PTT Partial Thromboplastin Power Q6H 09/08/22 17:00 PTT Partial Thromboplastin Power Q6H Heparin Sodium/Dextrose (Heparin Drip) 25,000 unit in 500 mls @ 17.418 mls/hr IV CONT FELECIA; Protocol Last Admin: 09/07/22 23:16 Dose: 12 units/kg/hr, 17.418 mls/hr Documented By: RAFA Discontinued Medications Aspirin (Aspirin 81 Mg Chew Tab) 324 mg PO NOW ONE Stop: 09/07/22 21:12 Last Admin: 09/07/22 23:11 Dose: 324 mg Documented By: RAFA Heparin Sodium (Porcine) (Heparin 5,000 Unit/Ml Vial) 4,000 unit IV NOW ONE Stop: 09/07/22 22:57 Last Admin: 09/07/22 23:13 Dose: 4,000 unit Documented By: RAFA Metoprolol Tartrate (Metoprolol Tartrate 5 Mg/5 Ml Inj) 5 mg IV Q5M FELECIA Stop: 09/07/22 23:11 Last Admin: 09/07/22 23:43 Dose: 5 mg Documented By: Admin: 09/07/22 23:35 Dose: 5 mg Documented By: Admin: 09/07/22 23:15 Dose: 5 mg Documented By: RAFA Reevaluation(s) Reevaluation #1: Pain completely resolved with nitro Reevaluation #2: Continues to be pain-free Time: 23:03 Consultations Consultation #1: call to [facility], [place], [facility]. No Beds. Call to [place]. No beds. Call to [facility] Time: 23:03 Consultation #2: call from Dr. Larson (Cardiology [place]) happy with plan and treatment thusfar. Happy to accept Vital Signs Vital signs: Vital Signs - 8 hr 09/07/22 21:07 09/07/22 22:20 09/07/22 23:00 Temperature 97.8 F 98.3 F Pulse Rate 99 H 56 L 86 Respiratory Rate 17 18 18 Blood Pressure 150/89 H 118/65 153/92 H Pulse Oximetry 99 98 97 Oxygen Delivery Method Room Air Room Air 09/07/22 23:30 09/07/22 23:30 09/07/22 23:35 Temperature Pulse Rate 84 84 71 Respiratory Rate 12 15 Blood Pressure 132/70 Pulse Oximetry 98 100 Oxygen Delivery Method 09/07/22 23:35 09/07/22 23:42 09/07/22 23:40 Temperature Pulse Rate 72 Respiratory Rate Blood Pressure 145/89 H 139/84 139/84 Pulse Oximetry Oxygen Delivery Method 09/07/22 23:40 09/07/22 23:45 09/07/22 23:50 Temperature Pulse Rate 69 72 Respiratory Rate 15 15 Blood Pressure 137/67 133/83 Pulse Oximetry 98 99 Oxygen Delivery Method 09/07/22 23:50 09/07/22 23:55 09/07/22 23:55 Temperature Pulse Rate 72 71 Respiratory Rate 15 17 Blood Pressure 145/79 H Pulse Oximetry 98 97 Oxygen Delivery Method 09/08/22 00:00 09/08/22 00:00 09/08/22 00:05 Temperature Pulse Rate 71 Respiratory Rate 14 Blood Pressure 134/65 124/75 Pulse Oximetry 97 Oxygen Delivery Method 09/08/22 00:05 09/08/22 00:10 09/08/22 00:10 Temperature Pulse Rate 69 68 Respiratory Rate 13 17 Blood Pressure 127/79 Pulse Oximetry 97 98 Oxygen Delivery Method 09/08/22 00:15 09/08/22 00:15 09/08/22 00:20 Temperature Pulse Rate 68 Respiratory Rate 15 Blood Pressure 125/78 126/81 Pulse Oximetry 97 Oxygen Delivery Method 09/08/22 00:20 09/08/22 00:25 09/08/22 00:25 Temperature Pulse Rate 67 65 Respiratory Rate 16 18 Blood Pressure 137/79 Pulse Oximetry 98 98 Oxygen Delivery Method 09/08/22 00:30 09/08/22 00:30 09/08/22 00:35 Temperature Pulse Rate 65 66 Respiratory Rate 17 15 Blood Pressure 137/83 Pulse Oximetry 98 99 Oxygen Delivery Method 09/08/22 00:35 09/08/22 00:40 09/08/22 00:40 Temperature Pulse Rate 65 Respiratory Rate 17 Blood Pressure 138/81 137/84 Pulse Oximetry 99 Oxygen Delivery Method 09/08/22 00:45 09/08/22 00:45 09/08/22 00:50 Temperature Pulse Rate 65 Respiratory Rate 16 Blood Pressure 142/81 H 138/81 Pulse Oximetry 97 Oxygen Delivery Method 09/08/22 00:50 09/08/22 00:55 09/08/22 00:55 Temperature Pulse Rate 65 64 Respiratory Rate 16 13 Blood Pressure 152/82 H Pulse Oximetry 97 98 Oxygen Delivery Method 09/08/22 01:00 09/08/22 01:00 09/08/22 01:05 Temperature Pulse Rate 66 74 Respiratory Rate 16 17 Blood Pressure 140/82 Pulse Oximetry 98 98 Oxygen Delivery Method 09/08/22 01:05 09/08/22 01:10 09/08/22 01:10 Temperature Pulse Rate 67 Respiratory Rate 13 Blood Pressure 135/86 150/88 H Pulse Oximetry 97 Oxygen Delivery Method 09/08/22 01:15 09/08/22 01:15 09/08/22 01:20 Temperature Pulse Rate 69 66 Respiratory Rate 17 13 Blood Pressure 138/82 Pulse Oximetry 97 96 Oxygen Delivery Method 09/08/22 01:20 09/08/22 01:25 09/08/22 01:25 Temperature Pulse Rate 71 Respiratory Rate 17 Blood Pressure 134/77 125/80 Pulse Oximetry 97 Oxygen Delivery Method 09/08/22 01:30 09/08/22 01:30 09/08/22 01:35 Temperature Pulse Rate 70 70 Respiratory Rate 15 15 Blood Pressure 147/76 H Pulse Oximetry 96 97 Oxygen Delivery Method 09/08/22 01:35 09/08/22 01:40 09/08/22 01:40 Temperature Pulse Rate 68 Respiratory Rate 17 Blood Pressure 135/67 139/76 Pulse Oximetry 97 Oxygen Delivery Method 09/08/22 01:45 09/08/22 01:45 Temperature Pulse Rate 70 Respiratory Rate 16 Blood Pressure 148/81 H Pulse Oximetry 97 Oxygen Delivery Method MDM - Chest Pain Lab Data 09/07/22 21:26 09/07/22 21:26 Labs: Lab Results 09/07/22 09/07/22 09/07/22 Range/Units 21:26 21:26 21:26 WBC 7.6 (4.5-11.0) X10^3/uL RBC 4.84 (4.5-5.9) X10^6/uL Hgb 14.4 (13.5-17.5) g/dL Hct 43.6 (41-53) % MCV 90.0 (80-100) fL MCH 29.8 (26-34) PG MCHC 33.1 (30-36) % RDW 14.7 (11.6-14.8) % Plt Count 175 (150-400) X10^3/uL Neut % (Auto) 66.3 (50-75) % Lymph % (Auto) 18.7 L (25-40) % [place] % (Auto) 7.9 (3-14) % Eos % (Auto) 6.1 H (2-4) % Baso % (Auto) 1.0 (0-2) % Neut # (Auto) 5100 (0379-8098) /uL Lymph # (Auto) 1400 (3509-7997) /uL [place] # (Auto) 600 (0-900) /uL Eos # (Auto) 500 H (0-450) /uL Baso # (Auto) 100 (0-100) /uL ESR (0-15) MM/HR PT 12.0 (10.1-12.7) SECONDS INR 1.0 (0.9-1.3) APTT 29 (26-36) SECONDS D-Dimer (<500) ng/ml Sodium 141 (137-145) mmol/L Potassium 3.8 (3.4-5.1) mmol/L Chloride 105 (98-107) mmol/L Carbon Dioxide 30 (22-32) mmol/L BUN 25 H (9-20) mg/dL Creatinine 1.51 H (0.66-1.25) mg/dL Estimated GFR 48 L (>60) mL/min BUN/Creatinine Ratio 16.6 (6-22) Glucose 105 (80-110) mg/dL Calcium 8.5 (8.4-10.2) mg/dL Magnesium 2.2 (1.6-2.3) mg/dL Total Bilirubin 0.3 (0.2-1.3) mg/dL AST 28 (17-59) IU/L ALT 27 (<50) IU/L Alkaline Phosphatase 134 H (38-126) U/L Total Creatine Kinase 111 (55-170) U/L CK-MB (CK-2) 3.48 H (<2.37) ng/mL CK-MB (CK-2) Rel Index 3.1 (1.5-5.0) % Troponin I 0.808 H* (0.01-0.034) ng/mL C-Reactive Protein (<1.0) mg/dL Total Protein 6.6 (6.3-8.2) g/dL Albumin 3.9 (3.5-5.0) g/dL Globulin 2.7 (1.7-4.1) g/dL Albumin/Globulin Ratio 1.4 (1.0-2.8) Lipase (23-300) U/L SARS-CoV-2 (PCR) (Negative) 09/07/22 09/07/22 09/07/22 Range/Units 21:26 21:26 21:26 WBC (4.5-11.0) X10^3/uL RBC (4.5-5.9) X10^6/uL Hgb (13.5-17.5) g/dL Hct (41-53) % MCV (80-100) fL MCH (26-34) PG MCHC (30-36) % RDW (11.6-14.8) % Plt Count (150-400) X10^3/uL Neut % (Auto) (50-75) % Lymph % (Auto) (25-40) % [place] % (Auto) (3-14) % Eos % (Auto) (2-4) % Baso % (Auto) (0-2) % Neut # (Auto) (6478-4427) /uL Lymph # (Auto) (8713-9217) /uL [place] # (Auto) (0-900) /uL Eos # (Auto) (0-450) /uL Baso # (Auto) (0-100) /uL ESR 3 (0-15) MM/HR PT (10.1-12.7) SECONDS INR (0.9-1.3) APTT (26-36) SECONDS D-Dimer 489 (<500) ng/ml Sodium (137-145) mmol/L Potassium (3.4-5.1) mmol/L Chloride (98-107) mmol/L Carbon Dioxide (22-32) mmol/L BUN (9-20) mg/dL Creatinine (0.66-1.25) mg/dL Estimated GFR (>60) mL/min BUN/Creatinine Ratio (6-22) Glucose (80-110) mg/dL Calcium (8.4-10.2) mg/dL Magnesium (1.6-2.3) mg/dL Total Bilirubin (0.2-1.3) mg/dL AST (17-59) IU/L ALT (<50) IU/L Alkaline Phosphatase (38-126) U/L Total Creatine Kinase (55-170) U/L CK-MB (CK-2) (<2.37) ng/mL CK-MB (CK-2) Rel Index (1.5-5.0) % Troponin I (0.01-0.034) ng/mL C-Reactive Protein (<1.0) mg/dL Total Protein (6.3-8.2) g/dL Albumin (3.5-5.0) g/dL Globulin (1.7-4.1) g/dL Albumin/Globulin Ratio (1.0-2.8) Lipase 56 (23-300) U/L SARS-CoV-2 (PCR) (Negative) 09/07/22 09/07/22 09/07/22 Range/Units 21:26 22:50 23:35 WBC (4.5-11.0) X10^3/uL RBC (4.5-5.9) X10^6/uL Hgb (13.5-17.5) g/dL Hct (41-53) % MCV (80-100) fL MCH (26-34) PG MCHC (30-36) % RDW (11.6-14.8) % Plt Count (150-400) X10^3/uL Neut % (Auto) (50-75) % Lymph % (Auto) (25-40) % [place] % (Auto) (3-14) % Eos % (Auto) (2-4) % Baso % (Auto) (0-2) % Neut # (Auto) (0125-3148) /uL Lymph # (Auto) (3812-4063) /uL [place] # (Auto) (0-900) /uL Eos # (Auto) (0-450) /uL Baso # (Auto) (0-100) /uL ESR (0-15) MM/HR PT (10.1-12.7) SECONDS INR (0.9-1.3) APTT (26-36) SECONDS D-Dimer (<500) ng/ml Sodium (137-145) mmol/L Potassium (3.4-5.1) mmol/L Chloride (98-107) mmol/L Carbon Dioxide (22-32) mmol/L BUN (9-20) mg/dL Creatinine (0.66-1.25) mg/dL Estimated GFR (>60) mL/min BUN/Creatinine Ratio (6-22) Glucose (80-110) mg/dL Calcium (8.4-10.2) mg/dL Magnesium (1.6-2.3) mg/dL Total Bilirubin (0.2-1.3) mg/dL AST (17-59) IU/L ALT (<50) IU/L Alkaline Phosphatase (38-126) U/L Total Creatine Kinase (55-170) U/L CK-MB (CK-2) (<2.37) ng/mL CK-MB (CK-2) Rel Index (1.5-5.0) % Troponin I 0.808 H* (0.01-0.034) ng/mL C-Reactive Protein 0.9 (<1.0) mg/dL Total Protein (6.3-8.2) g/dL Albumin (3.5-5.0) g/dL Globulin (1.7-4.1) g/dL Albumin/Globulin Ratio (1.0-2.8) Lipase (23-300) U/L SARS-CoV-2 (PCR) Negative (Negative) ECG Data Interpretation: [2118] EKG is normal sinus rhythm rate [ 89] and free of any signs of ischemia or ectopy.ST Depressions in lateral leads [2256] EKG is demonstrating bigeminy, rate 90 MDM Narrative Medical decision making narrative: [71] year old patient presents with worsening severity induration of chest pain Multiple etiologies for patient's symptoms considered including, but not limited to: Unstable angina versus NSTEMI versus other Prior Charts reviewed in our EMR Primary Historian: patient Labs reviewed and interpreted by myself: Troponin critically elevated Imaging reviewed: No acute process Consultations: Discussed with cardiology at [facility] [place], happy to accept, see details above Patient pain-free after nitro, given aspirin, metoprolol and started on heparin drip. Patient will require transfer to facility with Cardiology as he has a recent history requiring heart catheterization and stent and evidence of NSTEMI. Patient aware of and agreement with the plan and diagnosis Critical Care Time Critical Care Time Critical Care Time: Yes Total Critical Care Time: 30 Attestation: The high probability of a clinically significant, sudden or life threatening deterioration of the [CV] system(s) required my full and direct attention, intervention and personal management. The aggregate critical care time was [30] minutes. This time is in addition to time spent performing reported procedures but includes the following: [x] Data Review and interpretation [x] Patient assessment and monitoring of vital signs [x] Documentation [x] Medication orders and management Discharge Plan Departure Patient Disposition: [facility] Clinical Impression: Non-ST elevation GA (NSTEMI) Prescriptions: No Action nitroglycerin 0.3 mg tablet, sublingual 0.3 mg sublingual Q5-15M PRN (Reason: chest pain) Qty: 30 0RF Rx Instructions: do not exceed 3 doses per episode atorvastatin 80 mg tablet 80 mg BEDTIME Patient Comments: take 1 tablet by mouth at bedtime lisinopril 10 mg tablet 10 mg DAILY Patient Comments: Take 1 tablet (10 mg) by mouth once daily. prasugrel 10 mg tablet 10 mg DAILY Patient Comments: take 1 tablet by mouth once daily
--- NOTE | 2022-09-07 22:50 | PC.NURSE ---
pt c/o cp states it feels just like it did when he had his MO in December, pain has eased since he was triaged, states he was seen a few weeks ago and told it wasn't his heart but this time the pain is worse
[2022-09-07] MEDS: ASPIRIN 81 MG CHEW TAB 324 MG PO (23:11)
[2022-09-07] MEDS: HEPARIN 5,000 UNIT/ML VIAL 4000 UNIT IV (23:13)
[2022-09-07] MEDS: METOPROLOL TARTRATE 5 MG/5 ML INJ IV ×3 (23:15→23:43)
[2022-09-07] MEDS: HEPARIN DRIP 25,000 UNIT/500 ML IV.SOLN 17.418 UNIT IV (23:16)
--- NOTE | 2022-09-07 23:48 | PC.NURSE ---
warm blanket given and lights dimmed for comfort
[2022-09-07 23:56] LABS: Troponin I 0.808 ng/mL (0.01-0.034)
[2022-09-07 23:57] LABS: COVID19 -Nasal RAPID Negative (Negative)
[2022-09-08] VITALS (28 sets, daily range): BP systolic 124–152; BP diastolic 65–103; PULSE 64–86; RESP 11–35; O2SAT 96–99
--- NOTE | 2022-09-08 03:34 | PC.NURSE ---
Report to CCT RN given per Dr Cruz
--- NOTE | 2022-10-20 09:55 | PC.NURSE ---
Late Entry- patient was transfered on 09/08 @0330 with Heparin drip running per RN
== END 2022-09-08 03:35 | disposition short-term general hospital (02) ==
PROVIDERS: Emergency Provider Emergency Medicine
DX: I21.4 Non-ST elevation (NSTEMI) myocardial infarction (principal); Z20.822 Contact with and (suspected) exposure to COVID-19
CPT/HCPCS: 36415; 71045; 80053; 82550; 82553; 83690; 83735; 84484; 85025; 85379; 85610; 85651; 85730; 86140; 87635; 93005; 96365; 96366; 96375; 99284; C9803; J1644

== ENCOUNTER 2023-05-21 10:05 | Emergency (ER) | payer MEDICARE, MEDICAID, SELFPAY ==
[2023-05-21 10:07] VITALS: BP 179/88; PULSE 85; RESP 16; TEMP 36.8; O2SAT 100; BMI 21.7
--- NOTE | 2023-05-21 10:21 | ED_ITS ---
HPI - Skin/Abscess/Foreign Bdy General Chief complaint: Skin/Abscess/Foreign Body Stated complaint: per pt possible sinus infection Time Seen by Provider: 05/21/23 10:11 Source: patient Mode of arrival: Ambulatory Limitations: no limitations History of Present Illness HPI narrative: Patient is a 72-year-old male who is here for evaluation of approximately 3-4 days of what he initially thought was a sinus infection but has now developed a rash on his right forehead. He is having some eye discomfort. He initially thought was a sinus infection because when the symptoms started it was more of a runny nose and congestion but that has since improved. It does burn and itch. Feels like it is pins and needles. Has not tried anything for the symptoms. Related Data Home Medications Medication Instructions Recorded Confirmed atorvastatin 80 mg tablet 80 mg BEDTIME 09/07/22 09/07/22 lisinopril 10 mg tablet 10 mg DAILY 09/07/22 09/07/22 prasugrel 10 mg tablet 10 mg DAILY 09/07/22 09/07/22 Previous Rx's Medication Instructions Recorded nitroglycerin 0.3 mg sublingual 0.3 mg sublingual Q5-15M PRN chest 08/27/22 tablet pain #30 tabs acyclovir 800 mg tablet 800 mg PO 5XD 10 days #50 tabs 05/21/23 Allergies Allergy/AdvReac Type Severity Reaction Status Date / Time No Known Drug Allergies Allergy Verified 08/27/22 10:20 Review of Systems Constitutional Constitutional: Reports system reviewed and no additional complaints, except as documented Eyes Eyes: Reports system reviewed and no additional complaints, except as documented Integumentary/Breasts Skin/Breast: Reports system reviewed and no additional complaints, except as documented Neurologic Neurologic: Reports system reviewed and no additional complaints, except as documented Patient History Medical History Lung cancer COPD (chronic obstructive pulmonary disease) Social History Smoking Status: Current every day smoker Smoking Status: Current every day smoker alcohol intake frequency: 0-2 drinks per day Substance Use Type: does not use Exam Initial Vital Signs Initial Vital Signs: Vital Signs Temperature 98.3 F 05/21/23 10:07 Pulse Rate 85 05/21/23 10:07 Respiratory Rate 16 05/21/23 10:07 Blood Pressure 179/88 H 05/21/23 10:07 Pulse Oximetry 100 05/21/23 10:07 Oxygen Delivery Method Room Air 05/21/23 10:07 [facility] Head: normal to inspection and normocephalic Ears: TM's normal bilaterally Nose: external nose normal, nares normal and No nasal discharge Eyes Other: Some injection to the right eyelid however no uptake of staining with fluorescein. No dendrites noted. No ulcerations. No abrasions. Skin Other: Patient does have a rash on the right forehead that does extend up into the hairline. There are vesicles in clumps that are consistent with zoster. Neuro General: patient alert and patient awake Course Orders Ordered: Discontinued Medications Fluorescein Sodium (Fluorescein 1 Mg Strip) 1 mg EYE-RIGHT NOW ONE Stop: 05/21/23 10:17 Vital Signs Vital signs: Vital Signs - 8 hr 05/21/23 10:07 Temperature 98.3 F Pulse Rate 85 Respiratory Rate 16 Blood Pressure 179/88 H Pulse Oximetry 100 Oxygen Delivery Method Room Air MDM - Skin/Abscess/Foreign Bdy MDM Narrative Medical decision making narrative: His history and physical exam today is most consistent with shingles. Does not appear who involve the ear. There are no lesions on his nose. There was no uptake of fluorescein staining with his right eye. His left eye is unremarkable. He has had symptoms for the past 3 or 4 days which is outside of the idea window for starting antivirals however given the location I feel that this would be warranted today. A prescription was sent to the pharmacy of his choice. He does not have a primary doctor so he was given a card with the phone number that he can call to help establish a doctor. He was given return precautions. He expressed understanding and agreement. Discharge Plan Departure Patient Disposition: Home Clinical Impression: Shingles Instructions: DI for Shingles Activity Restrictions/Additional Instructions: Please take the medications as directed. I recommend that you use the phone number that you were given today to establish care with a primary doctor. Please return to the emergency department for new or worsening symptoms. Prescriptions: New acyclovir 800 mg tablet 800 mg PO 5XD 10 Days Qty: 50 0RF Rx Instructions: space evenly during waking hours No Action nitroglycerin 0.3 mg tablet, sublingual 0.3 mg sublingual Q5-15M PRN (Reason: chest pain) Qty: 30 0RF Rx Instructions: do not exceed 3 doses per episode atorvastatin 80 mg tablet 80 mg BEDTIME Patient Comments: take 1 tablet by mouth at bedtime lisinopril 10 mg tablet 10 mg DAILY Patient Comments: Take 1 tablet (10 mg) by mouth once daily. prasugrel 10 mg tablet 10 mg DAILY Patient Comments: take 1 tablet by mouth once daily Stand Alone Forms: Patient Portal/API
--- NOTE | 2023-05-21 10:24 | PC.NURSE ---
Past 5 days patient has head pins and needle type pain on his right scalp and around his eye. Pt states other than his eye squinting because of the rash he has not had any vision changes.
[2023-05-21 10:25] VITALS: BP 166/88; PULSE 79; RESP 16; O2SAT 96
[2023-05-21] MEDS: FLUORESCEIN 1 MG STRIP EYE-RIGHT (10:27)
== END 2023-05-21 10:37 | disposition home or self-care (01) ==
LOC: ED 10:28
PROVIDERS: Emergency Provider Emergency Medicine
DX: B02.9 Zoster without complications (principal)
CPT/HCPCS: 99282; 99283

== ENCOUNTER 2023-05-23 05:55 | Emergency (ER) | payer MEDICARE, MEDICAID, SELFPAY ==
[2023-05-23 06:06] VITALS: BP 188/111
[2023-05-23 06:07] VITALS: PULSE 84; O2SAT 94
[2023-05-23 06:10] VITALS: BP 188/111; PULSE 89; RESP 22; TEMP 36.8; O2SAT 96
[2023-05-23 06:30] VITALS: BP 140/84; PULSE 85; O2SAT 99
[2023-05-23] MEDS: HYDROCODONE/ACET 5/325 TABLET 1 TAB PO (06:35)
--- NOTE | 2023-05-23 06:42 | ED_ITS ---
HPI - Eye Problem General Chief complaint: Eye Problems Stated complaint: shingles in rt eye Time Seen by Provider: 05/23/23 06:41 Source: patient Mode of arrival: Ambulatory History of Present Illness HPI Narrative: Patient is a 72-year-old male history hypertension hyperlipidemia diagnosed with right facial shingles 2 days ago. Who started having symptoms about 5-6 days ago. At that time I was evaluated no dendritic lesions seen he was started on acyclovir however he reports that pain is excruciating. No fever or chills. Related Data Home Medications Medication Instructions Recorded Confirmed atorvastatin 80 mg tablet 80 mg BEDTIME 09/07/22 09/07/22 lisinopril 10 mg tablet 10 mg DAILY 09/07/22 09/07/22 prasugrel 10 mg tablet 10 mg DAILY 09/07/22 09/07/22 Previous Rx's Medication Instructions Recorded nitroglycerin 0.3 mg sublingual 0.3 mg sublingual Q5-15M PRN chest 08/27/22 tablet pain #30 tabs acyclovir 800 mg tablet 800 mg PO 5XD 10 days #50 tabs 05/21/23 gabapentin 300 mg capsule 300 mg PO BEDTIME #30 caps 05/23/23 hydrocodone 5 mg-acetaminophen 325 1 tab PO Q6H PRN pain #20 tabs 05/23/23 mg tablet Allergies Allergy/AdvReac Type Severity Reaction Status Date / Time No Known Drug Allergies Allergy Verified 08/27/22 10:20 Review of Systems Review of Systems ROS Unobtainable: All systems reviewed & are unremarkable except as noted in HPI and below Patient History Medical History Lung cancer COPD (chronic obstructive pulmonary disease) Social History Smoking Status: Current every day smoker Smoking Status: Current every day smoker alcohol intake frequency: 0-2 drinks per day Substance Use Type: does not use Exam Initial Vital Signs Initial Vital Signs: Vital Signs Blood Pressure 188/111 H 05/23/23 06:06 GENERAL: Well-appearing, well-nourished and in no acute distress. EYE: EOMI, YURIDIA Right eye stained with fluorescein no dendritic lesions seen no dye uptake CARDIOVASCULAR: peripheral pulses in tact, cap refill <2 sec RESPIRATORY: No respiratory distress, speaks in full sentences without difficulty EXTREMITIES: Normal range of motion, no clubbing or edema. Neurovascularly intact NEUROLOGICAL: Cranial nerves II through XII grossly intact. Normal gait and speech. SKIN: Right-sided facial erythema with vesicles consistent with shingles involving upper eyelid right forehead and into the scalp. Christy orbital edema more inferiorly noted Course Orders Ordered: Discontinued Medications Hydrocodone Bitart/Acetaminophen (Hydrocodone/Acet 5/325 Tablet) 1 tab PO NOW ONE Stop: 05/23/23 06:30 Last Admin: 05/23/23 06:35 Dose: 1 tab Documented By: DANNIE Fluorescein Sodium (Fluorescein 1 Mg Strip) 1 mg EYE-BOTH NOW ONE Stop: 05/23/23 06:52 Proparacaine HCl (Proparacaine 0.5% Ophth Ofelia) 1 drops EYE-BOTH NOW ONE Stop: 05/23/23 06:52 Vital Signs Vital signs: Vital Signs - 8 hr 05/23/23 06:06 05/23/23 06:07 05/23/23 06:10 Temperature 98.3 F Pulse Rate 84 89 Respiratory Rate 22 Blood Pressure 188/111 H 188/111 H Pulse Oximetry 94 96 Oxygen Delivery Method Room Air 05/23/23 06:30 05/23/23 06:30 Temperature Pulse Rate 85 Respiratory Rate Blood Pressure 140/84 Pulse Oximetry 99 Oxygen Delivery Method MDM - Eye Problem MDM Narrative Medical decision making narrative: 72-year-old male presents today with increasing pain from recently diagnosed shingles. He was not discharged home on pain medication. Eye is reexamined there again is no ocular involvement. He is given a dose of [place]. No concern for concurrent cellulitis Discharge Plan Departure Patient Disposition: Home Clinical Impression: Shingles Instructions: DI for Shingles Activity Restrictions/Additional Instructions: *You have been diagnosed with shingles *What to do: At this time this will take a couple weeks to heal I am sorry it is so painful *Continue to take medications as directed--> [facility] in [facility] Continue acyclovir as previously prescribed [place] 1-2 tablets every 6 hours if needed for severe pain Gabapentin 300 mg at night, this can be titrated but please see your primary care provider for further instructions *Follow up with your primary care provider in 2-3 days or call [phone] *Return to ER if you should have increasing pain redness fever visual change or any new, worsening or concerning symptoms CONTROLLED SUBSTANCE DISCHARGE (Narcotoic/benzodiazepine/Flexeril/Phenergan) 1. You have been prescribed narcotic medications, it does have acetaminophen/Tylenol/paracetamol in it, DO NOT TAKE MORE THAN 4,00mg in 24 hours of Tylenol. TRAMADOL DOES NOT CONTAIN TYLENOL 2. Please understand that we cannot provide further refills of narcotics, benzodiazepines or controlled substances through the ED and her pain management will need to be through your provider. 3. While on these medications you cannot drive or operate heavy machinery. 4. You cannot sign legal documents or perform any duties such as this. 5. As long as you're taking opiate pain medications he should also be taking a stool softener such as Colace, Dulcolax, MiraLAX or prune juice, to help avoid constipation. Prescriptions: New hydrocodone-acetaminophen 5-325 mg tablet 1 tab PO Q6H PRN (Reason: pain) Qty: 20 0RF gabapentin 300 mg capsule 300 mg PO BEDTIME Qty: 30 0RF No Action nitroglycerin 0.3 mg tablet, sublingual 0.3 mg sublingual Q5-15M PRN (Reason: chest pain) Qty: 30 0RF Rx Instructions: do not exceed 3 doses per episode atorvastatin 80 mg tablet 80 mg BEDTIME Patient Comments: take 1 tablet by mouth at bedtime lisinopril 10 mg tablet 10 mg DAILY Patient Comments: Take 1 tablet (10 mg) by mouth once daily. prasugrel 10 mg tablet 10 mg DAILY Patient Comments: take 1 tablet by mouth once daily acyclovir 800 mg tablet 800 mg PO 5XD 10 Days Qty: 50 0RF Rx Instructions: space evenly during waking hours Stand Alone Forms: Patient Portal/API
[2023-05-23] MEDS: PROPARACAINE 0.5% OPHTH SOL 1 DROPS EYE-BOTH (07:02)
[2023-05-23] MEDS: FLUORESCEIN 1 MG STRIP EYE-BOTH (07:05)
== END 2023-05-23 07:19 | disposition home or self-care (01) ==
PROVIDERS: Emergency Provider Emergency Medicine
DX: B02.30 Zoster ocular disease, unspecified (principal)
CPT/HCPCS: 99283

== ENCOUNTER 2023-06-16 08:59 | Emergency (ER) | payer MEDICARE, MEDICAID, SELFPAY ==
[2023-06-16 09:31] VITALS: BP 98/68; PULSE 78; RESP 14; TEMP 36.4; O2SAT 99; BMI 21.7
--- NOTE | 2023-06-16 09:40 | ED.SKABFB ---
HPI - Skin/Abscess/Foreign Bdy General Chief complaint: Skin/Abscess/Foreign Body Stated complaint: Shingles sent from Doctors office Time Seen by Provider: 06/16/23 09:40 Source: patient Mode of arrival: Ambulatory Limitations: no limitations History of Present Illness HPI narrative: 72-year-old man with a history of hypertension, hyperlipidemia, coronary artery disease diagnosed with right-sided V1 shingles on May 21 with symptoms starting approximately 05/19. He was started on acyclovir 800 mg 5 times a day for 10 days. Notes that time indicate no ear or nose involvement and no fluorescein staining of his right eye. He was seen again on May 23 with complaints of increasing pain. Again, dendritic lesions were not appreciated, he was given hydrocodone and gabapentin. He returns today complaining of continued severe eye pain now with vision abnormalities, complaining that he is unable to see out of the right eye. Visual acuity on the right side is 20 /70 on the left eye is 20/40 and bilateral is 20/50. He is not complaining of headaches or fevers. Related Data Home Medications Medication Instructions Recorded Confirmed atorvastatin 80 mg tablet 80 mg BEDTIME 09/07/22 09/07/22 lisinopril 10 mg tablet 10 mg DAILY 09/07/22 09/07/22 prasugrel 10 mg tablet 10 mg DAILY 09/07/22 09/07/22 Previous Rx's Medication Instructions Recorded nitroglycerin 0.3 mg sublingual 0.3 mg sublingual Q5-15M PRN chest 08/27/22 tablet pain #30 tabs gabapentin 300 mg capsule 300 mg PO BEDTIME #30 caps 05/23/23 hydrocodone 5 mg-acetaminophen 325 1 tab PO Q6H PRN pain #20 tabs 05/23/23 mg tablet Allergies Allergy/AdvReac Type Severity Reaction Status Date / Time No Known Drug Allergies Allergy Verified 06/16/23 09:34 Review of Systems Review of Systems Narrative: Pertinent positive and negative findings as per HPI Patient History Medical History (Updated 06/16/23 @ 10:05 by Sheridan Jack MD) Shingles Lung cancer COPD (chronic obstructive pulmonary disease) Social History Smoking Status: Current every day smoker Smoking Status: Current every day smoker alcohol intake frequency: 0-2 drinks per day Substance Use Type: does not use Exam Initial Vital Signs Initial Vital Signs: Vital Signs Temperature 97.5 F L 06/16/23 09:31 Pulse Rate 78 06/16/23 09:31 Respiratory Rate 14 06/16/23 09:31 Blood Pressure 98/68 06/16/23 09:31 Pulse Oximetry 99 06/16/23 09:31 Oxygen Delivery Method Room Air 06/16/23 09:31 General: Alert appropriate, complaining of ocular pain Visual acuity on the right side is 20/70, left eye is 20/40 and bilateral is 20/50 HEENT: Erythema around the right eye in a V1 distribution with no vesicles or crusted lesion. Sclera is somewhat injected. Respiratory: Able to speak in full sentences, no obvious respiratory distress Skin: No obvious rashes, warm and dry Neurologic: Grossly intact no obvious asymmetries or abnormalities Psych: appropriate insight and affect, cooperative Course Vital Signs Vital signs: Vital Signs - 8 hr 06/16/23 09:31 Temperature 97.5 F L Pulse Rate 78 Respiratory Rate 14 Blood Pressure 98/68 Pulse Oximetry 99 Oxygen Delivery Method Room Air MDM - Skin/Abscess/Foreign Bdy MDM Narrative Medical decision making narrative: CC: Right eye pain Complicating co-morbidities: Zoster, V1 distribution right side diagnosed 12 3 initial symptoms starting 12 1, hypertension, hyperlipidemia Data collected from: patient Social determinants of health that may influence the patients condition: Medical records reviewed: ER notes from May 21 and May 23 with shingles visits are reviewed Differential considered: Post herpetic neuralgia, secondary bacterial infection, or insidious ophthalmologic complication Exam documented above, pertinent findings include: Right periorbital area is slightly erythematous but rash has healed completely. Sclera is injected, decreased acuity right eye Discussion: 72-year-old gentleman with V1 right-sided shingles still having significant pain at a month. Right eye visual acuity is 20/70. Continues to complain of decreasing visual acuity and increasing right eye pain. We will see if I can facilitate an urgent ophthalmology follow-up with concern for ophthalmic shingles complication. Call is made to [facility] - they do not accept his insurance. Was seen by [facility], [facility] for cataract surgery. Will see if they are able to see this gentleman. 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 Can arrange for appointment in their [facility] today. Patient is aware and will keep that appointment. Discharge Plan Departure Patient Disposition: Home Clinical Impression: Neuralgia, post-herpetic Herpes zoster with ophthalmic complication Qualifiers: Herpes zoster ocular complication detail: unspecified herpes zoster eye disease Qualified Code(s): B02.30 - Zoster ocular disease, unspecified Instructions: DI for Shingles Activity Restrictions/Additional Instructions: Thank you for coming in today I am concerned that you have shingles affecting the surface of your eye. This is a vision threatening concern. We have scheduled an appointment for you in the [place] [facility], [facility] TODAY at 145pm the address is [address] [place] [id number] Please arrive a bit early to do new patient paperwork Prescriptions: No Action nitroglycerin 0.3 mg tablet, sublingual 0.3 mg sublingual Q5-15M PRN (Reason: chest pain) Qty: 30 0RF Rx Instructions: do not exceed 3 doses per episode atorvastatin 80 mg tablet 80 mg BEDTIME Patient Comments: take 1 tablet by mouth at bedtime lisinopril 10 mg tablet 10 mg DAILY Patient Comments: Take 1 tablet (10 mg) by mouth once daily. prasugrel 10 mg tablet 10 mg DAILY Patient Comments: take 1 tablet by mouth once daily hydrocodone-acetaminophen 5-325 mg tablet 1 tab PO Q6H PRN (Reason: pain) Qty: 20 0RF gabapentin 300 mg capsule 300 mg PO BEDTIME Qty: 30 0RF Stand Alone Forms: Patient Portal/API
[2023-06-16 10:47] VITALS: BP 117/85; PULSE 78; RESP 18; O2SAT 99
== END 2023-06-16 10:48 | disposition home or self-care (01) ==
PROVIDERS: Emergency Provider Emergency Medicine
DX: B02.30 Zoster ocular disease, unspecified (principal); B02.29 Other postherpetic nervous system involvement
CPT/HCPCS: 99282

== ENCOUNTER 2023-12-30 07:52 | Emergency (ER) | payer MEDICARE, MEDICAID, SELFPAY ==
[2023-12-30] VITALS (10 sets, daily range): BP systolic 140–155; BP diastolic 65–74; PULSE 65–85; RESP 15–24; TEMP 36.6–37; O2SAT 91–100; BMI 21.7
--- NOTE | 2023-12-30 07:53 | DI.RAD.S_ITS ---
PROCEDURE: XR CHEST 1V INDICATIONS: Chest pain TECHNIQUE: One view of the chest was acquired. COMPARISON: [facility], CR, XR CHEST 1V, 09/07/2022, 21:28. FINDINGS: Surgical changes and devices: None. Lungs and pleura: Ill-defined opacity is again seen in left lung apex suggestive of a pickle scarring unchanged from prior study. Small infiltrate versus atelectasis at right infrahilar region is seen. No pleural effusion or pneumothorax. Mediastinum: Mediastinal contours appear normal. Heart size is normal. Bones and chest wall: No suspicious bony lesions. Overlying soft tissues appear unremarkable. IMPRESSION: Finding is concerning for developing small right infrahilar infiltrate versus atelectasis. Stable left apical scarring. No pleural effusion or pneumothorax. Dictated by: Beka Jaramillo M.D. on 12/30/2023 at 8:51 Approved by: Beka Jaramillo M.D. on 12/30/2023 at 8:51
--- NOTE | 2023-12-30 07:58 | ED.GENADULT ---
HPI - General Adult General Chief complaint: Shortness of Breath/Dyspnea Stated complaint: heart attack symptoms Time Seen by Provider: 12/30/23 07:52 Source: patient Mode of arrival: Ambulatory Limitations: no limitations History of Present Illness HPI narrative: Patient is a 73-year-old male. History of [id number]-bmqeaiguz diabetes, hypertension and coronary artery disease. 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 He was here for evaluation of 1-2 days of what he initially stated was ?heart attack symptoms? however upon further evaluation it has been shortness of breath. He denies chest pain. No lower extremity swelling. He states that he feels like he was ?dizzy? he describes this as an unsteadiness on his feet. No numbness or tingling in his upper and lower extremities. He denies any cough. No fevers. He does have history of COPD per his report. Not on home oxygen. Takes no inhalers for this. Has not tried anything for the symptoms prior to. Related Data Home Medications Medication Instructions Recorded Confirmed atorvastatin 80 mg tablet 80 mg BEDTIME 09/07/22 07/27/23 lisinopril 10 mg tablet 10 mg DAILY 09/07/22 07/27/23 prasugrel 10 mg tablet 10 mg DAILY 09/07/22 07/27/23 aspirin 81 mg tablet,delayed 81 mg PO DAILY 07/27/23 07/27/23 release metoprolol succinate 25 mg 12.5 mg PO DAILY 07/27/23 07/27/23 tablet,extended release 24 hr Previous Rx's Medication Instructions Recorded nitroglycerin 0.3 mg sublingual 0.3 mg sublingual Q5-15M PRN chest 08/27/22 tablet pain #30 tabs hydrocodone 5 mg-acetaminophen 325 1 tab PO Q6H PRN pain #20 tabs 07/27/23 mg tablet pregabalin 75 mg capsule 75 mg PO BID #60 caps 11/30/23 azithromycin 250 mg tablet See Rx Instructions PO .COMPLEX #6 12/30/23 tabs Allergies Allergy/AdvReac Type Severity Reaction Status Date / Time No Known Drug Allergies Allergy Verified 07/27/23 08:08 Review of Systems Review of Systems Narrative: See HPI Patient History Medical History Asbestosis (~2008) PTSD (post-traumatic stress disorder) (~1970) Depression (~1970) Anxiety (~1970) Mumps MRSA (methicillin resistant Staphylococcus aureus) Chicken pox Vertigo Cataracts, bilateral (~2016) Myocardial infarction (~2021) Sphenoid sinusitis Non-ST elevation GA (NSTEMI) Shingles Lung cancer COPD (chronic obstructive pulmonary disease) (~2008) Family History (Updated 08/05/23 @ 19:50 by Veronica Del Castillo) Mother Cancer Social History Smoking Status: Current every day smoker quit status: considering quitting substance use type: marijuana (daily) Smoking Status: Current every day smoker (1 pack daily since age 13) alcohol intake frequency: 0-2 drinks per day Substance Use Type: does not use Exam Initial Vital Signs Initial Vital Signs: Vital Signs Pulse Rate 78 12/30/23 07:58 Pulse Oximetry 96 12/30/23 07:58 Const General: cooperative, comfortable and No ill appearing HENMT Head: normal to inspection and normocephalic Resp Effort & Inspection: normal respiratory effort Auscultation: clear to auscultation bilaterally Cardio Rate: regular rate Rhythm: regular rhythm GI Inspection: normal to inspection and non-distended Skin General: no rashes or lesions noted Neuro General: patient alert, patient awake and moves all extremities Extrem General: No edema Course Orders Ordered: ED Orders 12/30/23 07:53 XR chest 1V Stat EKG-12 Lead Stat 12/30/23 08:02 Complete Blood Count AUTO DIFF Stat Comprehensive Metabolic Panel Stat Lipase Stat Magnesium Stat Troponin & CK Cardiac Panel Stat 12/30/23 10:11 Troponin & CK Cardiac Panel Stat Vital Signs Vital signs: Vital Signs - 8 hr 12/30/23 07:58 12/30/23 08:00 12/30/23 08:02 Temperature Pulse Rate 78 85 Respiratory Rate 24 Blood Pressure 155/67 H Pulse Oximetry 96 Oxygen Delivery Method 12/30/23 08:02 12/30/23 08:05 Temperature 97.8 F Pulse Rate 80 79 Respiratory Rate 24 16 Blood Pressure 155/67 H Pulse Oximetry 91 97 Oxygen Delivery Method Room Air Medical Decision Making Medical Records Medical records reviewed: Yes I reviewed the patient's medical records. Lab Data Lab results reviewed: Yes I reviewed the patient's lab results. 12/30/23 08:02 12/30/23 08:02 Labs: Lab Results 12/30/23 12/30/23 Range/Units 08:02 10:11 WBC 7.2 (4.5-11.0) X10^3/uL RBC 4.62 (4.5-5.9) X10^6/uL Hgb 13.8 (13.5-17.5) g/dL Hct 42.0 (41-53) % MCV 91.0 (80-100) fL MCH 29.9 (26-34) PG MCHC 32.9 (30-36) % RDW 14.9 H (11.6-14.8) % Plt Count 121 L (150-400) X10^3/uL Neut % (Auto) 60.4 (50-75) % Lymph % (Auto) 22.5 L (25-40) % Mckean % (Auto) 14.4 H (3-14) % Eos % (Auto) 1.7 L (2-4) % Baso % (Auto) 1.0 (0-2) % Neut # (Auto) 4300 (6851-4610) /uL Lymph # (Auto) 1600 (6623-7227) /uL Mckean # (Auto) 1000 H (0-900) /uL Eos # (Auto) 100 (0-450) /uL Baso # (Auto) 100 (0-100) /uL Sodium 138 (137-145) mmol/L Potassium 4.0 (3.4-5.1) mmol/L Chloride 108 H (98-107) mmol/L Carbon Dioxide 27 (22-32) mmol/L BUN 25 H (9-20) mg/dL Creatinine 1.60 H (0.66-1.25) mg/dL Estimated GFR 45 L (>60) mL/min BUN/Creatinine Ratio 15.6 (6-22) Glucose 116 H (80-110) mg/dL Calcium 8.2 L (8.4-10.2) mg/dL Magnesium 2.2 (1.6-2.3) mg/dL Total Bilirubin 0.4 (0.2-1.3) mg/dL AST 25 (17-59) IU/L ALT 16 (<50) IU/L Alkaline Phosphatase 86 (38-126) U/L Total Creatine Kinase 67 65 (55-170) U/L Troponin I < 0.012 < 0.012 (0.01-0.034) ng/mL Total Protein 6.4 (6.3-8.2) g/dL Albumin 3.7 (3.5-5.0) g/dL Globulin 2.7 (1.7-4.1) g/dL Albumin/Globulin Ratio 1.4 (1.0-2.8) Lipase 63 (23-300) U/L Imaging Data Chest x-ray: Radiologist's Impression: PROCEDURE: XR CHEST 1V INDICATIONS: Chest pain TECHNIQUE: One view of the chest was acquired. COMPARISON: [facility], CR, XR CHEST 1V, 09/07/2022, 21:28. FINDINGS: Surgical changes and devices: None. Lungs and pleura: Ill-defined opacity is again seen in left lung apex suggestive of a pickle scarring unchanged from prior study. Small infiltrate versus atelectasis at right infrahilar region is seen. No pleural effusion or pneumothorax. Mediastinum: Mediastinal contours appear normal. Heart size is normal. Bones and chest wall: No suspicious bony lesions. Overlying soft tissues appear unremarkable. IMPRESSION: Finding is concerning for developing small right infrahilar infiltrate versus atelectasis. Stable left apical scarring. No pleural effusion or pneumothorax. ECG Data Attestation: I personally reviewed and interpreted this ECG as follows: Interpretation: Sinus rhythm Ventricular rate is 70 Frequent PVCs Normal QRS No ST T wave changes MDM Narrative Medical decision making narrative: Patient has no chest pain, nonischemic EKG and 2- troponins. Low suspicion for ACS. Chest x-ray shows concern for developing infiltrate. He was not clinically in heart failure. He has been having shortness of breath and a cough. Plan will be to treat him with antibiotics. He was not hypoxic. No indication for admission to the hospital. No leukocytosis. Antibiotics were sent to the pharmacy of his choice. He was given return precautions. He expressed understanding and agreement. Discharge Plan Departure Patient Disposition: Home Clinical Impression: Community acquired pneumonia Instructions: DI for Pneumonia -- Adult Activity Restrictions/Additional Instructions: Continue to take all of your medications as directed. Take the antibiotics that you were prescribed today as directed as well. Contact your primary care doctor for a follow-up. Return to the emergency department for new symptoms. Prescriptions: New azithromycin 250 mg tablet See Rx Instructions .ROUTE .COMPLEX Qty: 6 0RF Rx Instructions: For 250 mg dose pack: take 500 mg today (day 1), then 250 mg for 4 days (days 2-5) No Action metoprolol succinate 25 mg tablet extended release 24 hr 12.5 mg PO DAILY aspirin 81 mg tablet,delayed release (DR/EC) 81 mg PO DAILY hydrocodone-acetaminophen 5-325 mg tablet 1 tab PO Q6H PRN (Reason: pain) Qty: 20 0RF pregabalin 75 mg capsule 75 mg PO BID Qty: 60 2RF nitroglycerin 0.3 mg tablet, sublingual 0.3 mg sublingual Q5-15M PRN (Reason: chest pain) Qty: 30 0RF Rx Instructions: do not exceed 3 doses per episode atorvastatin 80 mg tablet 80 mg BEDTIME Patient Comments: take 1 tablet by mouth at bedtime lisinopril 10 mg tablet 10 mg DAILY Patient Comments: Take 1 tablet (10 mg) by mouth once daily. prasugrel 10 mg tablet 10 mg DAILY Patient Comments: take 1 tablet by mouth once daily Referrals: Kirk Funes MD [Primary Care Provider] - Stand Alone Forms: Patient Portal/API
--- NOTE | 2023-12-30 08:04 | EKG_ITS ---
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
[2023-12-30 08:10] LABS: Add Manual Diff / Slide Review NO; Basophils Absolute Auto 100 /uL (0-100); Eosinophils Absolute Auto 100 /uL (0-450); Eosinophils Percent Auto 1.7 % (2-4); Hemoglobin 13.8 g/dL (13.5-17.5); Lymphocytes Absolute Auto 1600 /uL (1100-4500); Lymphocytes Percent Auto 22.5 % (25-40); Mean Corpuscular HGB Conc 32.9 % (30-36); Mean Corpuscular Hemoglobin 29.9 PG (26-34); Monocytes Absolute Auto 1000 /uL (0-900); Monocytes Percent Auto 14.4 % (3-14); Neutrophils Absolute Auto 4300 /uL (1500-7000); Neutrophils Percent Auto 60.4 % (50-75); Platelet Count 121 X10^3/uL (150-400); Red Blood Cell Count 4.62 X10^6/uL (4.5-5.9); Red Cell Distribution Width 14.9 % (11.6-14.8); White Blood Cell Count 7.2 X10^3/uL (4.5-11.0)
[2023-12-30 08:26] LABS: Alanine Aminotransferase 16 IU/L (<50); Albumin 3.7 g/dL (3.5-5.0); Albumin Globulin Ratio 1.4 (1.0-2.8); Alkaline Phosphatase 86 U/L (38-126); Aspartate Aminotransferase 25 IU/L (17-59); BUN Creatinine Ratio 15.6 (6-22); Bilirubin Total 0.4 mg/dL (0.2-1.3); Blood Urea Nitrogen 25 mg/dL (9-20); Calcium 8.2 mg/dL (8.4-10.2); Carbon Dioxide 27 mmol/L (22-32); Chloride 108 mmol/L (98-107); Creatine Kinase 67 U/L (55-170); Estimated Glomerular Filt Rate 45 mL/min (>60); Globulin 2.7 g/dL (1.7-4.1); Glucose 116 mg/dL (80-110); HEMOLYSIS 26 (0-50); Lipase 63 U/L (23-300); Magnesium 2.2 mg/dL (1.6-2.3); Sodium 138 mmol/L (137-145); Total Protein 6.4 g/dL (6.3-8.2)
--- NOTE | 2023-12-30 08:26 | PC.NURSE ---
Previous hx of HI, states symptoms feel similar to prior that happened approx 1 year ago. Pt states he also has trouble finding words; pt speaking in clear sentences. No focal weakness. Pt states he has BP managed w/ medicine
[2023-12-30 08:37] LABS: Troponin I < 0.012 ng/mL (0.01-0.034)
[2023-12-30 10:27] LABS: Creatine Kinase 65 U/L (55-170)
[2023-12-30 10:40] LABS: Troponin I < 0.012 ng/mL (0.01-0.034)
== END 2023-12-30 11:07 | disposition home or self-care (01) ==
PROVIDERS: Emergency Provider Emergency Medicine; PCP Family Medicine
DX: J18.9 Pneumonia, unspecified organism (principal); I49.3 Ventricular premature depolarization; F17.200 Nicotine dependence, unspecified, uncomplicated
CPT/HCPCS: 36415; 71045; 80053; 82550; 83690; 83735; 84484; 85025; 93005; 99284

== ENCOUNTER 2024-04-27 09:42 | Emergency (ER) | payer MEDICARE, MEDICAID, SELFPAY ==
[2024-04-27] VITALS (9 sets, daily range): BP systolic 120–184; BP diastolic 58–79; PULSE 56–75; RESP 13–24; TEMP 36.4; O2SAT 97–100; BMI 21.7
--- NOTE | 2024-04-27 09:49 | DI.RAD.S_ITS ---
PROCEDURE: XR CHEST 1V INDICATIONS: Shortness of breath TECHNIQUE: One view of the chest was acquired. COMPARISON: [facility], CR, XR CHEST 1V, 12/30/2023, 7:54. [facility], CR, XR CHEST 1V, 09/07/2022, 21:28. FINDINGS: Surgical changes and devices: None. Lungs and pleura: Lungs are clear. No pleural effusions or pneumothorax. Left apical scarring and a right midlung nodule are unchanged. Mediastinum: Mediastinal contours appear normal. Heart size is normal. Bones and chest wall: No suspicious bony lesions. Overlying soft tissues appear unremarkable. IMPRESSION: No acute cardiopulmonary abnormality is seen. Dictated by: Zabrina Anderson M.D. on 04/27/2024 at 9:19 Approved by: Zabrina Anderson M.D. on 04/27/2024 at 9:23
--- NOTE | 2024-04-27 09:49 | EKG_ITS ---
[place] [id number] [place] [id number] Test Date: 2024-04-27 Pat Name: Kike Rebolledo Department: [facility] Room: Gender: Male Pediatric Radiologist: JORGE : 1950 Requested By: Order Number: [id number] Reading MD: John Brown MD Measurements Intervals [place] Rate: 71 P: 72 CT: 156 QRS: 29 QRSD: 80 T: 59 QT: 412 QTc: 447 Interpretive Statements Sinus rhythm with frequent premature ventricular complexes Possible Left atrial enlargement Septal infarct , age undetermined Electronically Signed On 04-28-2024 13:40:17 PST by John Brown MD
--- NOTE | 2024-04-27 10:06 | ED_ITS ---
HPI - SOB/Dyspnea General Chief Complaint: Shortness of Breath/Dyspnea Stated Complaint: poss pneumonia Time Seen by Provider: 04/27/24 09:57 Source: patient, RN notes reviewed and old records reviewed Mode of arrival: Ambulatory Limitations: no limitations History of Present Illness HPI Narrative: 73-year-old male history of [id number] diabetes, hypertension, coronary artery disease with 2 cardiac stents and prior history of lung cancer treated in 2010 in 2017 with chemo and radiation presents with complaint of shortness of breath. Patient states has had some shortness of breath for awhile was treated for pneumonia about a month ago with a azithromycin states he felt significantly better. Did not follow up for repeat chest x-ray states he is slowly just felt a little bit more short of breath over time. Denies fevers or chills. Denies any chest pain or pressure. Describes some shortness of breath and cough. He states cough has been clear/white and is worse particularly when he lays flat. He notes a little bit more shortness of breath when he lays flat but also describes coughing a lot with productive sputum. Denies any new swelling of extremities. Denies any nausea or vomiting. No issues with bowel movements or urination. States he continues to take lisinopril 10 mg metoprolol 12.5 mg daily, had his anticoagulants prasugel stopped about 6 months ago. Does not take an aspirin or other anticoagulants currently. Has 2 cardiac stents. No known drug allergies. Does use about half pack tobacco daily, no regular alcohol, no recreational drugs. Dr. Mary Deras is his bioinformatics specialist in [place]. Dr. Funes is his primary care here locally. Related Data Home Medications Medication Instructions Recorded Confirmed atorvastatin 80 mg tablet 80 mg BEDTIME 09/07/22 07/27/23 lisinopril 10 mg tablet 10 mg DAILY 09/07/22 07/27/23 prasugrel 10 mg tablet 10 mg DAILY 09/07/22 07/27/23 aspirin 81 mg tablet,delayed 81 mg PO DAILY 07/27/23 07/27/23 release metoprolol succinate 25 mg 12.5 mg PO DAILY 07/27/23 07/27/23 tablet,extended release 24 hr Previous Rx's Medication Instructions Recorded nitroglycerin 0.3 mg sublingual 0.3 mg sublingual Q5-15M PRN chest 08/27/22 tablet pain #30 tabs hydrocodone 5 mg-acetaminophen 325 1 tab PO Q6H PRN pain #20 tabs 07/27/23 mg tablet pregabalin 75 mg capsule 75 mg PO BID #60 caps 11/30/23 azithromycin 250 mg tablet See Rx Instructions PO .COMPLEX #6 12/30/23 tabs Allergies Allergy/AdvReac Type Severity Reaction Status Date / Time No Known Drug Allergies Allergy Verified 04/27/24 09:49 Review of Systems Review of Systems ROS Unobtainable: All systems reviewed & are unremarkable except as noted in HPI and below Patient History Medical History Asbestosis (~2008) PTSD (post-traumatic stress disorder) (~1970) Depression (~1970) Anxiety (~1970) Mumps MRSA (methicillin resistant Staphylococcus aureus) Chicken pox Vertigo Cataracts, bilateral (~2016) Myocardial infarction (~2021) Sphenoid sinusitis Non-ST elevation [place] (NSTEMI) Shingles Lung cancer COPD (chronic obstructive pulmonary disease) (~2008) Family History Mother Cancer Social History Smoking Status: Current every day smoker quit status: considering quitting substance use type: marijuana (daily) Smoking Status: Current every day smoker alcohol intake frequency: holidays/special occasions only Substance Use Type: does not use Exam Narrative Exam Narrative: GENERAL: Alert and oriented x three, male in mild distress HEENT: Head normocephalic, atraumatic, EOMI, pupils reactive, face symmetric, moist mucous membranes NECK: Supple, full range of motion CARDIOVASCULAR: Regular rate and rhythm without murmurs, rubs or gallops. No JVD. No edema bilateral lower extremities. RESPIRATORY: Breath sounds equal bilaterally, no wheezes rales or rhonchi. No tachypnea or accessory muscle use. ABDOMEN: Soft, nontender. Normoactive bowel sounds all 4 quadrants. No guarding or rebound, rigidity, no mass : No CVA tenderness EXTREMITIES: Normal range of motion, no clubbing or edema. Neurovascularly intact NEUROLOGICAL: Cranial nerves II through XII grossly intact. Moving all extremities SKIN: Warm, dry, no petechiae, no rashes or lesions. Initial Vital Signs Initial Vital Signs: Vital Signs Temperature 97.6 F 04/27/24 09:43 Pulse Rate 60 04/27/24 09:43 Respiratory Rate 24 04/27/24 09:43 Blood Pressure 184/79 H 04/27/24 09:43 Pulse Oximetry 98 04/27/24 09:43 Oxygen Delivery Method Room Air 04/27/24 09:43 Course Orders Ordered: ED Orders 04/27/24 09:49 XR chest 1V Stat EKG-12 Lead Stat Measure peak expiratory flow ONCE RT Consult Eval and Treat NOW 04/27/24 09:50 Complete Blood Count AUTO DIFF Stat Comprehensive Metabolic Panel Stat Lactate (Lactic Acid) Stat NT-proBNP (BNP-Adult 18+) Stat Prothrombin Time INR Stat Respiratory Panel (Film Array) Stat Troponin I Stat Vital Signs Vital signs: Vital Signs - 8 hr 04/27/24 09:43 04/27/24 09:46 04/27/24 09:47 Temperature 97.6 F Pulse Rate 60 Respiratory Rate 24 Blood Pressure 184/79 H 184/79 H Pulse Oximetry 98 97 Oxygen Delivery Method Room Air 04/27/24 09:47 04/27/24 10:00 04/27/24 10:00 Temperature Pulse Rate 61 75 Respiratory Rate 23 Blood Pressure 166/75 H Pulse Oximetry 98 99 Oxygen Delivery Method 04/27/24 10:30 04/27/24 10:31 04/27/24 10:31 Temperature Pulse Rate 56 L 65 Respiratory Rate 13 24 Blood Pressure 127/58 L Pulse Oximetry 100 99 Oxygen Delivery Method 04/27/24 11:00 04/27/24 11:01 04/27/24 11:01 Temperature Pulse Rate 72 73 Respiratory Rate 16 18 Blood Pressure 122/58 L Pulse Oximetry 99 98 Oxygen Delivery Method 04/27/24 11:30 04/27/24 11:30 Temperature Pulse Rate 63 Respiratory Rate 18 Blood Pressure 120/60 Pulse Oximetry 98 Oxygen Delivery Method MDM - SOB/Dyspnea Lab Data 04/27/24 09:50 04/27/24 09:50 Labs: Lab Results 04/27/24 Range/Units 09:50 WBC 9.4 (4.5-11.0) X10^3/uL RBC 5.24 (4.5-5.9) X10^6/uL Hgb 15.7 (13.5-17.5) g/dL Hct 48.1 (41-53) % MCV 91.8 (80-100) fL MCH 30.0 (26-34) PG MCHC 32.7 (30-36) % RDW 14.5 (11.6-14.8) % Plt Count 223 (150-400) X10^3/uL Neut % (Auto) 65.4 (50-75) % Lymph % (Auto) 19.9 L (25-40) % [facility] % (Auto) 9.8 (3-14) % Eos % (Auto) 3.8 (2-4) % Baso % (Auto) 1.1 (0-2) % Neut # (Auto) 6100 (2478-0558) /uL Lymph # (Auto) 1900 (0767-5177) /uL [facility] # (Auto) 900 (0-900) /uL Eos # (Auto) 400 (0-450) /uL Baso # (Auto) 100 (0-100) /uL PT 11.8 (9.4-12.5) SECONDS INR 1.0 (0.9-1.3) Sodium 141 (137-145) mmol/L Potassium 4.6 (3.4-5.1) mmol/L Chloride 106 (98-107) mmol/L Carbon Dioxide 29 (22-32) mmol/L BUN 39 H (9-20) mg/dL Creatinine 1.83 H (0.66-1.25) mg/dL Estimated GFR 38 L (>60) mL/min BUN/Creatinine Ratio 21.3 (6-22) Glucose 107 (80-110) mg/dL Lactate 1.0 (0.7-2.1) mmol/L Calcium 9.2 (8.4-10.2) mg/dL Total Bilirubin 0.4 (0.2-1.3) mg/dL AST 24 (17-59) IU/L ALT 15 (<50) IU/L Alkaline Phosphatase 105 (38-126) U/L Troponin I < 0.012 (0.01-0.034) ng/mL NT-Pro-B Natriuret Pep 382 (<450) pg/mL Total Protein 7.0 (6.3-8.2) g/dL Albumin 4.1 (3.5-5.0) g/dL Globulin 2.9 (1.7-4.1) g/dL Albumin/Globulin Ratio 1.4 (1.0-2.8) Chlamy pneumoniae PCR Not detected (Not Detect) Adenovirus (PCR) Not detected (Not Detect) B. pertussis DNA (PCR) Not detected (Not Detect) B.parapertussis DNA PCR Not detected (Not Detecte) Coronavirus OC43 (PCR) Not detected (Not Detect) Coronavirus HKU1 (PCR) Not detected (Not Detect) Coronavirus 229E (PCR) Not detected (Not Detect) SARS-CoV-2 (PCR) Not detected (Not Detecte) Coronavirus NL63 (PCR) Not detected (Not Detect) Human Metapneumovir PCR Not detected (Not Detect) Influenza Type A (PCR) Not detected (Not Detect) Influenza Type B (PCR) Not detected (Not Detect) M. pneumoniae (PCR) Not detected (Not Detect) Parainfluenza 1 (PCR) Not detected (Not Detect) Parainfluenza 2 (PCR) Not detected (Not Detect) Parainfluenza 3 (PCR) Not detected (Not Detect) Parainfluenza 4 (PCR) Not detected (Not Detect) RSV (PCR) Not detected (Not Detect) Entero/Rhino (PCR) Not detected (Not Detect) ECG Data Attestation: I personally reviewed and interpreted this ECG as follows: Prior ECG tracings: available for review Interpretation: Sinus rhythm with frequent PVCs rate of 71 NM 156 QRS 80 QTC of [address] elevation or depression appreciated patient has prior from 12/30/2023 also has frequent PVCs similar ST segments. [facility] Narrative Medical decision making narrative: 73-year-old male history of coronary artery disease, prior history of lung cancer likely COPD with chronic tobacco use. Patient presents with complaint of shortness of breath with cough with clear/white productive sputum particularly when lying down. Chest x-ray shows no acute change EKG shows frequent PVCs but no other acute ST changes. Labs white count of 9.4, 15.7 hemoglobin platelets of 223. Chemistries show normal electrolytes BUN 39 creatinine of 1.83 was 1.6 in December, glucose is 107 lactate 1 LFTs are normal troponins less than 0.012 with a BNP of 382. Respiratory panel is negative. Patient notes some increased cough with clear white productive sputum no changes consistent with workup with CHF, patient is describing more possible COPD exacerbation does have a history of lung cancer has not had any surveillance since his last treatment. Discussed risks versus benefits of following up with CT today as patient has not done that. Patient feels comfortable holding off on CT at this time he states he did have some checked for surveillance post treatment. He does have little bit of postnasal drip with his symptoms we will recommend loratadine 10 mg to see if this is helpful. Patient notes he generally feels better than he did a month ago. Discharge Plan Departure Patient Disposition: Home Clinical Impression: Dyspnea Instructions: DI for Shortness of Breath Activity Restrictions/Additional Instructions: Follow up for recheck if your symptoms are not continuing to improve. You can try loratadine (generic name) or Claritin (the brand name) 10 mg once daily [id number] and see if this improves some of your symptoms. Please return if you have new chest pain, increasing shortness of breath any lightheadedness or passing out, coughing up blood or discolored sputum, new swelling of your extremities, persistent vomiting or other new or concerning changes. Prescriptions: No Action metoprolol succinate 25 mg tablet extended release 24 hr 12.5 mg PO DAILY aspirin 81 mg tablet,delayed release (DR/EC) 81 mg PO DAILY hydrocodone-acetaminophen 5-325 mg tablet 1 tab PO Q6H PRN (Reason: pain) Qty: 20 0RF pregabalin 75 mg capsule 75 mg PO BID Qty: 60 2RF nitroglycerin 0.3 mg tablet, sublingual 0.3 mg sublingual Q5-15M PRN (Reason: chest pain) Qty: 30 0RF Rx Instructions: do not exceed 3 doses per episode atorvastatin 80 mg tablet 80 mg BEDTIME Patient Comments: take 1 tablet by mouth at bedtime lisinopril 10 mg tablet 10 mg DAILY Patient Comments: Take 1 tablet (10 mg) by mouth once daily. prasugrel 10 mg tablet 10 mg DAILY Patient Comments: take 1 tablet by mouth once daily azithromycin 250 mg tablet See Rx Instructions .ROUTE .COMPLEX Qty: 6 0RF Rx Instructions: For 250 mg dose pack: take 500 mg today (day 1), then 250 mg for 4 days (days 2-5) Referrals: Kirk Funes MD [Primary Care Provider] - Stand Alone Forms: Patient Portal/API/Survey
[2024-04-27 10:17] LABS: Add Manual Diff / Slide Review NO; Basophils Absolute Auto 100 /uL (0-100); Basophils Percent Auto 1.1 % (0-2); Eosinophils Absolute Auto 400 /uL (0-450); Eosinophils Percent Auto 3.8 % (2-4); Hematocrit 48.1 % (41-53); Hemoglobin 15.7 g/dL (13.5-17.5); Lymphocytes Absolute Auto 1900 /uL (1100-4500); Lymphocytes Percent Auto 19.9 % (25-40); Mean Corpuscular HGB Conc 32.7 % (30-36); Mean Corpuscular Volume 91.8 fL (80-100); Monocytes Absolute Auto 900 /uL (0-900); Monocytes Percent Auto 9.8 % (3-14); Neutrophils Absolute Auto 6100 /uL (1500-7000); Neutrophils Percent Auto 65.4 % (50-75); Platelet Count 223 X10^3/uL (150-400); Red Blood Cell Count 5.24 X10^6/uL (4.5-5.9); Red Cell Distribution Width 14.5 % (11.6-14.8); White Blood Cell Count 9.4 X10^3/uL (4.5-11.0)
[2024-04-27 10:21] LABS: Prothrombin Time 11.8 SECONDS (9.4-12.5)
[2024-04-27 10:26] LABS: Alanine Aminotransferase 15 IU/L (<50); Albumin 4.1 g/dL (3.5-5.0); Albumin Globulin Ratio 1.4 (1.0-2.8); Alkaline Phosphatase 105 U/L (38-126); Aspartate Aminotransferase 24 IU/L (17-59); BUN Creatinine Ratio 21.3 (6-22); Bilirubin Total 0.4 mg/dL (0.2-1.3); Blood Urea Nitrogen 39 mg/dL (9-20); Calcium 9.2 mg/dL (8.4-10.2); Carbon Dioxide 29 mmol/L (22-32); Chloride 106 mmol/L (98-107); Estimated Glomerular Filt Rate 38 mL/min (>60); Globulin 2.9 g/dL (1.7-4.1); Glucose 107 mg/dL (80-110); HEMOLYSIS 22 (0-50); Potassium 4.6 mmol/L (3.4-5.1); Sodium 141 mmol/L (137-145)
[2024-04-27 10:38] LABS: NT-proBNP (BNP-Adult 18+) 382 pg/mL (<450); Troponin I < 0.012 ng/mL (0.01-0.034)
[2024-04-27 11:02] LABS: Adenovirus Not Detected (Not Detect); B. parapertussis Not Detected (Not Detecte); Bordetella pertussis Not Detected (Not Detect); Chlamydophila pneumoniae Not Detected (Not Detect); Coronavirus 229E Not Detected (Not Detect); Coronavirus HKU1 Not Detected (Not Detect); Coronavirus NL 63 Not Detected (Not Detect); Coronavirus OC43 Not Detected (Not Detect); Human Metapneumovirus Not Detected (Not Detect); Human Rhinovirus/Enterovirus Not Detected (Not Detect); Influenza A Not Detected (Not Detect); Influenza B Not Detected (Not Detect); Mycoplasma pneumoniae Not Detected (Not Detect); Parainfluenza Virus 1 Not Detected (Not Detect); Parainfluenza Virus 2 Not Detected (Not Detect); Parainfluenza Virus 3 Not Detected (Not Detect); Parainfluenza Virus 4 Not Detected (Not Detect); Respiratory Syncytial Virus Not Detected (Not Detect); SARS- CoV-2 Not Detected (Not Detecte)
== END 2024-04-27 11:44 | disposition home or self-care (01) ==
PROVIDERS: Emergency Provider Emergency Medicine; PCP Family Medicine
DX: R06.00 Dyspnea, unspecified (principal); Z11.52 Encounter for screening for COVID-19; Z95.5 Presence of coronary angioplasty implant and graft; Z85.118 Personal history of other malignant neoplasm of bronchus and lung; Z72.0 Tobacco use
CPT/HCPCS: 36415; 71045; 80053; 83605; 83880; 84484; 85025; 85610; 87633; 93005; 93010; 99283; 99284

== ENCOUNTER → 2024-12-24 14:49 | Outpatient (CLI) | payer MEDICARE, MEDICAID, SELFPAY ==
--- NOTE | 2024-12-24 14:49 | DI.US.S_ITS ---
PROCEDURE: US SOFT TISSUE ABDOMEN INDICATIONS: possible lipoma on left upper back TECHNIQUE: Real-time scanning was performed of the abdominal and retroperitoneal organs, with image documentation. Seven images. COMPARISON: None. FINDINGS: In the area of interest noted as left scapula palpable lump, there is a approximately 5.0 x 3.7 x 0.5 cm oval-shaped structure with echogenicity intermediate between subcutaneous fat and skeletal muscle commonly may represent lipoma although elastofibroma dorsi could also be considered in this location. Other rare soft tissue masses not excluded. IMPRESSION: Suspected lipoma as discussed above versus elastofibroma or other soft tissue lesion. Dictated by: Edwin Fish M.D. on 12/25/2024 at 8:40 Approved by: Edwin Fish M.D. on 12/25/2024 at 8:45
== END ==
LOC: US 14:49
PROVIDERS: PCP Family Medicine; Referring Provider Family Medicine; Visit Provider Family Medicine
DX: R22.2 Localized swelling, mass and lump, trunk (principal)
CPT/HCPCS: 76705